=== PATIENT | female | born 1980 | race African-American/Black ===

== ENCOUNTER 2016-04-29 17:37 | Emergency (ER) | payer OTHER ==
[2016-04-29] MEDS ORDERED: ASPIRIN 81 MG TABLET, CHEWABLE PO ONE (17:52)
[2016-04-29 17:53] VITALS: BP 166/86
--- NOTE | 2016-04-29 17:53 | ER Document Report ---
ED Medical Screen (RME) - General Stated Complaint: CHEST PAIN Mode of Arrival: Wheelchair Information source: Patient Notes: Patient reports having cold sweats today. Patient reports chest pain and lightheadedness that started suddenly just before 5 PM today. No nausea or vomiting. Patient reports sitting up straight standing aggravates her pain symptoms. Patient does report a family history of early heart disease. hx: Hypertension, diabetes I have greeted and performed a rapid initial assessment of this patient. A comprehensive ED assessment and evaluation of the patient, analysis of test results and completion of the medical decision making process will be conducted by additional ED providers. TRAVEL OUTSIDE OF THE [place] IN LAST 30 DAYS: No - Related Data Allergies/Adverse Reactions: codeine [Codeine] Allergy (Verified 04/29/16 17:50) Past Medical History Endocrine Medical History: Reports: Hx Diabetes Mellitus Type 1, Hx Diabetes Mellitus Type 2 Renal/ Medical History: Reports: Hx Ovarian Cysts GI Medical History: Reports: Hx Endoscopy Past Surgical History: Reports: Hx Section - x2, Hx Gynecologic Surgery - fallopian tube removed left, uterine ablation - Immunizations Immunizations up to date: Yes Hx Diphtheria, Pertussis, Tetanus Vaccination: Yes - unknown Physical Exam - Cardiovascular Rhythm: Tachycardia - Apical 108 Heart sounds: S1 appreciated, S2 appreciated Murmur: No
[2016-04-29 18:36] LABS: ABSOLUTE EOSINOPHILS # (AUTO) 0.3 10^3/uL (0.0-0.6); ABSOLUTE LYMPHOCYTES (AUTO) 2.9 10^3/uL (0.5-4.7); ABSOLUTE MONOCYTES (AUTO) 0.7 10^3/uL (0.1-1.4); ABSOLUTE NEUT (AUTO) 5.6 10^3/uL (1.7-8.2); BASOPHILS % (AUTO) 0.3 % (0-2); EOSINOPHILS % (AUTO) 2.8 % (0-6); HEMATOCRIT 32.2 % (36.0-47.0); HEMOGLOBIN 10.7 g/dL (12.0-15.5); HGB HCT DIFFERENCE -0.1; LYMPHOCYTES % (AUTO) 30.7 % (13-45); MEAN CORPUSCULAR HEMOGLOBIN 27.9 pg (27.0-33.4); MEAN CORPUSCULAR HGB CONC 33.1 g/dL (32.0-36.0); MEAN CORPUSCULAR VOLUME 84 fl (80-97); MONOCYTES % (AUTO) 6.9 % (3-13); RED BLOOD COUNT 3.83 10^6/uL (3.72-5.28); RED CELL DISTRIBUTION WIDTH 12.8 % (11.5-14.0); SEGMENTED NEUTROPHILS % (AUTO) 59.3 % (42-78); WHITE BLOOD COUNT 9.5 10^3/uL (4.0-10.5)
[2016-04-29 18:44] LABS: APPEARANCE,URINE SLIGHTLY-CLOUDY; BILIRUBIN,URINE NEGATIVE (NEGATIVE); GLUCOSE, URINE 50 mg/dL (NEGATIVE); KETONES,URINE NEGATIVE (NEGATIVE); LEUKOCYTE ESTERASE,URINE NEGATIVE (NEGATIVE); NITRITE,URINE NEGATIVE (NEGATIVE); PROTEIN,URINE 100 mg/dL (NEGATIVE); URINE SPECIFIC GRAVITY 1.014; UROBILINOGEN,URINE NEGATIVE mg/dL (<2.0)
[2016-04-29 18:58] LABS: ALANINE AMINOTRANSFERASE 35 U/L (9-52); ALKALINE PHOSPHATASE 73 U/L (38-126); ANION GAP 15 (5-19); ASPARTATE AMINO TRANSFERASE 23 U/L (14-36); BILIRUBIN,DIRECT 0.3 mg/dL (0.0-0.4); BILIRUBIN,TOTAL 0.5 mg/dL (0.2-1.3); BLOOD UREA NITROGEN 29 mg/dL (7-20); CALCIUM 10.1 mg/dL (8.4-10.2); CARBON DIOXIDE 23 mmol/L (22-30); CHLORIDE 103 mmol/L (98-107); CREATINE KINASE 174 U/L (30-135); CREATININE RESULT 0.82 mg/dL (0.52-1.25); GLUCOSE 149 mg/dL (75-110); LIPASE 166.5 U/L (23-300); MAGNESIUM 1.9 mg/dL (1.6-2.3); POTASSIUM 4.4 mmol/L (3.6-5.0); SODIUM 140.5 mmol/L (137-145); TOTAL PROTEIN 7.6 g/dL (6.3-8.2)
[2016-04-29 18:59] LABS: URINE BARBITURATES SCREEN NEGATIVE; URINE METHADONE SCREEN NEGATIVE; URINE OPIATES LOW NEGATIVE; URINE PHENCYCLIDINE SCREEN NEGATIVE
[2016-04-29 19:10] LABS: CREATINE KINASE MB 0.88 ng/mL (<4.55)
--- NOTE | 2016-04-29 19:11 | EKG REPORT ---
SEVERITY:- BORDERLINE ECG - SINUS TACHYCARDIA BORDERLINE T ABNORMALITIES, INFERIOR LEADS : Confirmed by: Reyes Douglas MD 29-Apr-2016 19:10:44
[2016-04-29 19:13] LABS: TROPONIN I < 0.012 ng/mL
== END 2016-04-29 18:30 | disposition left against medical advice (07) ==
LOC: ER 17:37
DX: R07.9 Chest pain, unspecified (principal); R61 Generalized hyperhidrosis; R42 Dizziness and giddiness; I10 Essential (primary) hypertension; E11.9 Type 2 diabetes mellitus without complications; Z82.49 Family history of ischemic heart disease and other diseases of the circulatory system; Z53.20 Procedure and treatment not carried out because of patient's decision for unspecified reasons
CPT/HCPCS: 36415; 71020; 80053; 80307; 81001; 82550; 82553; 83690; 83735; 84443; 84484; 85025; 93005; 93010; 99281

== ENCOUNTER 2016-07-21 16:02 | Emergency (ER) | payer OTHER ==
[2016-07-21 16:14] VITALS: BP 142/79
== END 2016-07-21 17:40 | disposition left against medical advice (07) ==
LOC: ER 16:02
DX: Z53.9 Procedure and treatment not carried out, unspecified reason (principal); R42 Dizziness and giddiness
CPT/HCPCS: 82962

== ENCOUNTER 2017-09-25 11:32 | Emergency (ER) | payer OTHER ==
[2017-09-25] MEDS ORDERED: RINGERS SOLUTION,LACTATED 1,000 ML IV ONE (11:52)
--- NOTE | 2017-09-25 11:52 | ER Document Report ---
ED Medical Screen (RME) - General Chief Complaint: High Blood Sugar Stated Complaint: BLOOD SUGAR ISSUES Time Seen by Provider: 09/25/17 11:51 Mode of Arrival: Ambulatory Information source: Patient Notes: This is a 37-year-old female with type 1 diabetes and hypertension who is been without medicines since April is coming in with nausea, generalized weakness and concerns that she may be in DKA. She has had DKA in the past. TRAVEL OUTSIDE OF THE [place] IN LAST 30 DAYS: No - Related Data Allergies/Adverse Reactions: codeine [Codeine] Allergy (Verified 09/25/17 11:37) Past Medical History - Social History Frequency of alcohol use: None Drug Abuse: None - Past Medical History Cardiac Medical History: Reports: Hx Hypertension Endocrine Medical History: Reports: Hx Diabetes Mellitus Type 1, Hx Diabetes Mellitus Type 2 Renal/ Medical History: Reports: Hx Ovarian Cysts. Denies: Hx Peritoneal Dialysis GI Medical History: Reports: Hx Endoscopy Past Surgical History: Reports: Hx Abdominal Surgery - abdominal lap for mass, Hx Section - x2, Hx Gynecologic Surgery - fallopian tube removed left, uterine ablation, Hx Hysterectomy - Immunizations Immunizations up to date: Yes Hx Diphtheria, Pertussis, Tetanus Vaccination: Yes - unknown Physical Exam - Vital signs Vitals: Temp Pulse Resp BP Pulse Ox 98.2 F 69 18 184/107 H 97 09/25/17 11:38 09/25/17 11:38 09/25/17 11:38 09/25/17 11:38 09/25/17 11:38 Course - Vital Signs Vital signs: Temp Pulse Resp BP Pulse Ox 98.2 F 69 18 184/107 H 97 09/25/17 11:38 09/25/17 11:38 09/25/17 11:38 09/25/17 11:38 09/25/17 11:38
[2017-09-25 12:15] LABS: VENOUS BLOOD BASE EXCESS 1.7 mmol/L; VENOUS BLOOD HCO3 28.5 mmol/L (20-32); VENOUS BLOOD PCO2 54.1 mmHg (35-63); VENOUS BLOOD PH 7.34 (7.30-7.42)
[2017-09-25 12:16] LABS: ABSOLUTE EOSINOPHILS # (AUTO) 0.1 10^3/uL (0.0-0.6); ABSOLUTE LYMPHOCYTES (AUTO) 2.2 10^3/uL (0.5-4.7); ABSOLUTE MONOCYTES (AUTO) 0.5 10^3/uL (0.1-1.4); ABSOLUTE NEUT (AUTO) 4.9 10^3/uL (1.7-8.2); BASOPHILS % (AUTO) 0.6 % (0-2); EOSINOPHILS % (AUTO) 1.5 % (0-6); HEMATOCRIT 38.1 % (36.0-47.0); HEMOGLOBIN 12.6 g/dL (12.0-15.5); MEAN CORPUSCULAR HEMOGLOBIN 29.7 pg (27.0-33.4); MEAN CORPUSCULAR HGB CONC 33.2 g/dL (32.0-36.0); MEAN CORPUSCULAR VOLUME 90 fl (80-97); MONOCYTES % (AUTO) 6.7 % (3-13); PLATELET COUNT 245 10^3/uL (150-450); RED BLOOD COUNT 4.25 10^6/uL (3.72-5.28); RED CELL DISTRIBUTION WIDTH 12.9 % (11.5-14.0); SEGMENTED NEUTROPHILS % (AUTO) 63.2 % (42-78); TOTAL CELLS COUNTED % (AUTO) 100 %; WHITE BLOOD COUNT 7.7 10^3/uL (4.0-10.5)
[2017-09-25 12:34] LABS: ALANINE AMINOTRANSFERASE 27 U/L (9-52); ALBUMIN 3.4 g/dL (3.5-5.0); ALKALINE PHOSPHATASE 109 U/L (38-126); ANION GAP 14 (5-19); ASPARTATE AMINO TRANSFERASE 17 U/L (14-36); BILIRUBIN,DIRECT 0.3 mg/dL (0.0-0.4); BILIRUBIN,TOTAL 0.5 mg/dL (0.2-1.3); BLOOD UREA NITROGEN 17 mg/dL (7-20); CALCIUM 9.4 mg/dL (8.4-10.2); CARBON DIOXIDE 25 mmol/L (22-30); CHLORIDE 92 mmol/L (98-107); POTASSIUM 4.8 mmol/L (3.6-5.0); SODIUM 130.7 mmol/L (137-145); TOTAL PROTEIN 6.8 g/dL (6.3-8.2)
[2017-09-25 12:43] LABS: GLUCOSE 594 mg/dL (75-110)
[2017-09-25] MEDS ORDERED: INSULIN REG, HUMAN 100 UNIT/ML 3 ML VIAL (PYX) SUBCUT ONE (12:49)
[2017-09-25 13:24] LABS: APPEARANCE,URINE CLEAR; BILIRUBIN,URINE NEGATIVE (NEGATIVE); COLOR,URINE COLORLESS; GLUCOSE, URINE >=500 mg/dL (NEGATIVE); KETONES,URINE 20 mg/dL (NEGATIVE); LEUKOCYTE ESTERASE,URINE NEGATIVE (NEGATIVE); NITRITE,URINE NEGATIVE (NEGATIVE); PROTEIN,URINE 100 mg/dL (NEGATIVE); URINE SPECIFIC GRAVITY 1.025; UROBILINOGEN,URINE NEGATIVE mg/dL (<2.0)
[2017-09-25] MEDS ORDERED: PROCHLORPERAZINE EDISYLATE INJ 10 MG/2 ML VIAL IV ONE (14:03)
[2017-09-25] MEDS ORDERED: ONDANSETRON HCL INJ/PF 4 MG/2 ML SDV IV ONE (14:03)
[2017-09-25] MEDS ORDERED: LIDOCAINE 5% (700 MG) TRANSDERMAL ADH..PATCH TP ONE (14:03)
--- NOTE | 2017-09-25 14:09 | ER Document Report ---
ED General - General Chief Complaint: High Blood Sugar Stated Complaint: BLOOD SUGAR ISSUES Time Seen by Provider: 09/25/17 11:51 Mode of Arrival: Ambulatory TRAVEL OUTSIDE OF THE [place] IN LAST 30 DAYS: No - HPI Patient complains to provider of: Hyperglycemia Notes: Patient coming in for hyperglycemia. Concerned she is in DKA. Patient states she is having some abdominal pain nausea and feeling that she is dehydrated with increased urination. Patient states she has not had any of her medications for her diabetes since April. Patient states she stopped taking it because she did not like the way to be filled. Patient otherwise is resting soundly upon my evaluation. Denies any recent travel denies any recent antibiotics. Patient is also concerned about lump has been on her right thigh just above the knee ongoing now for greater than 1-2 months. Patient states sometimes this loss becomes painful there is no child has been performed but no clear etiology seen. - Related Data Allergies/Adverse Reactions: codeine [Codeine] Allergy (Verified 09/25/17 11:37) Past Medical History - General Information source: Patient - Social History Smoking Status: Never Smoker Frequency of alcohol use: None Drug Abuse: None Family History: Other - Grandmother and mother with cardiac issues at a young age. Patient has suicidal ideation: No Patient has homicidal ideation: No - Past Medical History Cardiac Medical History: Reports: Hx Hypertension Endocrine Medical History: Reports: Hx Diabetes Mellitus Type 1, Hx Diabetes Mellitus Type 2 Renal/ Medical History: Reports: Hx Ovarian Cysts. Denies: Hx Peritoneal Dialysis GI Medical History: Reports: Hx Endoscopy Past Surgical History: Reports: Hx Abdominal Surgery - abdominal lap for mass, Hx Section - x2, Hx Gynecologic Surgery - fallopian tube removed left, uterine ablation, Hx Hysterectomy - Immunizations Immunizations up to date: Yes Hx Diphtheria, Pertussis, Tetanus Vaccination: Yes - unknown Review of Systems - Review of Systems Constitutional: See HPI EENT: No symptoms reported Cardiovascular: No symptoms reported Respiratory: No symptoms reported Gastrointestinal: No symptoms reported Genitourinary: No symptoms reported Female Genitourinary: No symptoms reported Musculoskeletal: Other - Soft tissue abnormality Skin: No symptoms reported Hematologic/Lymphatic: No symptoms reported Neurological/Psychological: No symptoms reported -: Yes All other systems reviewed and negative Physical Exam - Vital signs Vitals: Temp Pulse Resp BP Pulse Ox 98.2 F 69 18 184/107 H 97 09/25/17 11:38 09/25/17 11:38 09/25/17 11:38 09/25/17 11:38 09/25/17 11:38 Interpretation: Normal - General General appearance: Appears well, Alert - HEENT Head: Normocephalic, Atraumatic Eyes: Normal Pupils: PERRL - Respiratory Respiratory status: No respiratory distress Chest status: Nontender Breath sounds: Normal Chest palpation: Normal - Cardiovascular Rhythm: Regular Heart sounds: Normal auscultation Murmur: No - Abdominal Inspection: Normal Distension: No distension Bowel sounds: Normal Tenderness: Nontender Organomegaly: No organomegaly - Back Back: Normal, Nontender - Extremities General upper extremity: Normal inspection, Nontender, Normal color, Normal ROM , Normal temperature General lower extremity: Nontender, Normal color, Normal ROM, Normal temperature , Normal weight bearing. No: Normal inspection - Patient was soft tissue abnormality the distal femur on the dorsum of the thigh ultrasound does not show any signs of lipoma abscess formation. Unclear etiology possibly underlying muscle spasms no critical pathology seen at this time. Left lower extremity unaffected, Janki's sign - Neurological Neuro grossly intact: Yes Cognition: Normal Orientation: AAOx4 Mari Coma Scale Eye Opening: Spontaneous Normanna Coma Scale Verbal: Oriented Normanna Coma Scale Motor: Obeys Commands Mari Coma Scale Total: 15 Speech: Normal Motor strength normal: LUE, RUE, LLE, RLE Sensory: Normal - Psychological Associated symptoms: Normal affect, Normal mood - Skin Skin Temperature: Warm Skin Moisture: Dry Skin Color: Normal Course - Re-evaluation Re-evalutation: 09/25/17 14:55 Educated patient that she will need insulin for her diabetes. Will prescribe patient her insulin regimen that she was on prior to her ER visit. Did recommend patient follow-up with her primary care physician no signs of DKA HHS. Patient was also given lidocaine patch for soft tissue abnormality recommend patient follow-up for her PCP for further definitive testing - Vital Signs Vital signs: Temp Pulse Resp BP Pulse Ox 98.2 F 69 15 175/94 H 98 09/25/17 11:38 09/25/17 11:38 09/25/17 12:01 09/25/17 12:01 09/25/17 12:01 - Laboratory Result Diagrams: 09/25/17 12:01 09/25/17 12:01 Laboratory results interpreted by me: 09/25/17 09/25/17 09/25/17 12:01 12:01 13:10 Sodium 130.7 L Chloride 92 L Glucose 594 H* Hemoglobin A1c % > 14.0 H Albumin 3.4 L Urine Protein 100 H Urine Glucose (UA) >=500 H Urine Ketones 20 H Discharge - Discharge Clinical Impression: Hyperglycemia, Soft tissue anomaly right thigh Condition: Good Disposition: HOME, SELF-CARE Instructions: Hyperglycemia ([facility]), Diabetes ([facility]) Additional Instructions: EKG laboratory studies did not show any significant findings. Your blood sugar is significantly elevated with an elevated A1c. We have recommended she continue your diabetic medications until you follow-up with your new provider. I will give the prescriptions for your previously prescribed insulins. Return to the ER for any other issues. Also prescribed Zofran and Compazine and she can take for any nausea or headaches. Also recommend following up with your primary care physician for the soft tissue finding on your right thigh. Prescriptions: Insulin Detemir [Levemir Insulin 100 units/mL] 42 unit SUBCUT QHS #10 ml Insulin Aspart [Novolog Insulin 100 Unit/1 ml 10 ml] 0 unit SUBCUT .SLD SCALE # 10 ml Ondansetron HCl [Zofran 4 mg Tablet] 1 - 2 tab PO Q6 #30 tablet Prochlorperazine Maleate [Compazine] 5 mg PO Q6 #30 tablet Forms: Return to Work
[2017-09-25 14:15] VITALS: BP 173/119
--- NOTE | 2017-09-25 16:18 | EKG REPORT ---
SEVERITY:- BORDERLINE ECG - SINUS RHYTHM PROBABLE LEFT ATRIAL ABNORMALITY BORDERLINE T WAVE ABNORMALITIES : Confirmed by: Reyes Douglas MD 25-Sep-2017 16:17:59
== END 2017-09-25 14:26 | disposition home or self-care (01) ==
LOC: ER 11:32
DX: E11.65 Type 2 diabetes mellitus with hyperglycemia (principal); R22.41 Localized swelling, mass and lump, right lower limb; R10.9 Unspecified abdominal pain; R11.0 Nausea; I10 Essential (primary) hypertension; Z88.6 Allergy status to analgesic agent; Z90.710 Acquired absence of both cervix and uterus
CPT/HCPCS: 93005; 99284; 96361; 96374; 96375; 36415; 82962; 83690; 83735; 85025; 81025; 80053; 81001; 83036; 82803; 93010; J1815; J0780; J2405; J7120

== ENCOUNTER 2018-02-26 15:04 | Emergency (ER) | payer OTHER, MEDICAID ==
[2018-02-26] MEDS ORDERED: MORPHINE SULFATE 10 MG/ML INJ IV ONE ×2 (15:21→17:55)
--- NOTE | 2018-02-26 15:23 | ER Document Report ---
ED Medical Screen (RME) - General Chief Complaint: Lower Abdominal Pain Stated Complaint: ABDOMINAL PAIN Time Seen by Provider: 02/26/18 15:20 Mode of Arrival: Wheelchair Information source: Patient, Relative TRAVEL OUTSIDE OF THE [place] IN LAST 30 DAYS: No - HPI Patient complains to provider of: abd pain Onset: Just prior to arrival - pt. with onset of RLQ pain just [employer]. She is s/p total hysterectomy - Related Data Allergies/Adverse Reactions: codeine [Codeine] Allergy (Verified 09/25/17 11:37) Past Medical History - Social History Chew tobacco use (# tins/day): No Frequency of alcohol use: None Drug Abuse: None - Past Medical History Cardiac Medical History: Reports: Hx Hypertension Endocrine Medical History: Reports: Hx Diabetes Mellitus Type 1, Hx Diabetes Mellitus Type 2 Renal/ Medical History: Reports: Hx Ovarian Cysts. Denies: Hx Peritoneal Dialysis GI Medical History: Reports: Hx Endoscopy Past Surgical History: Reports: Hx Abdominal Surgery - abdominal lap for mass, Hx Section - x2, Hx Gynecologic Surgery - fallopian tube removed left, uterine ablation, Hx Hysterectomy - Immunizations Immunizations up to date: Yes Hx Diphtheria, Pertussis, Tetanus Vaccination: Yes - unknown Physical Exam - Vital signs Vitals: Temp Pulse Resp BP Pulse Ox 98.1 F 103 H 14 182/94 H 97 02/26/18 15:10 02/26/18 15:10 02/26/18 15:10 02/26/18 15:10 02/26/18 15:10 Course - Vital Signs Vital signs: Temp Pulse Resp BP Pulse Ox 98.1 F 103 H 14 182/94 H 97 02/26/18 15:10 02/26/18 15:10 02/26/18 15:10 02/26/18 15:10 02/26/18 15:10
[2018-02-26 16:00] LABS: ABSOLUTE EOSINOPHILS # (AUTO) 0.1 10^3/uL (0.0-0.6); ABSOLUTE LYMPHOCYTES (AUTO) 2.5 10^3/uL (0.5-4.7); ABSOLUTE MONOCYTES (AUTO) 0.4 10^3/uL (0.1-1.4); BASOPHILS % (AUTO) 0.2 % (0-2); EOSINOPHILS % (AUTO) 1.8 % (0-6); HEMOGLOBIN 10.8 g/dL (12.0-15.5); LYMPHOCYTES % (AUTO) 35.6 % (13-45); MEAN CORPUSCULAR HEMOGLOBIN 28.1 pg (27.0-33.4); MEAN CORPUSCULAR HGB CONC 32.6 g/dL (32.0-36.0); MEAN CORPUSCULAR VOLUME 86 fl (80-97); MONOCYTES % (AUTO) 6.2 % (3-13); PLATELET COUNT 309 10^3/uL (150-450); RED BLOOD COUNT 3.83 10^6/uL (3.72-5.28); RED CELL DISTRIBUTION WIDTH 12.8 % (11.5-14.0); SEGMENTED NEUTROPHILS % (AUTO) 56.2 % (42-78); TOTAL CELLS COUNTED % (AUTO) 100 %; WHITE BLOOD COUNT 7.1 10^3/uL (4.0-10.5)
[2018-02-26 16:07] LABS: APPEARANCE,URINE CLEAR; BILIRUBIN,URINE NEGATIVE (NEGATIVE); COLOR,URINE STRAW; GLUCOSE, URINE >=500 mg/dL (NEGATIVE); KETONES,URINE NEGATIVE (NEGATIVE); LEUKOCYTE ESTERASE,URINE NEGATIVE (NEGATIVE); NITRITE,URINE NEGATIVE (NEGATIVE); PROTEIN,URINE >=500 mg/dL (NEGATIVE); URINE SPECIFIC GRAVITY 1.021; UROBILINOGEN,URINE NEGATIVE mg/dL (<2.0)
[2018-02-26 16:18] LABS: ALANINE AMINOTRANSFERASE 20 U/L (9-52); ALBUMIN 3.5 g/dL (3.5-5.0); ALKALINE PHOSPHATASE 99 U/L (38-126); ANION GAP 7 (5-19); ASPARTATE AMINO TRANSFERASE 20 U/L (14-36); BILIRUBIN,DIRECT 0.1 mg/dL (0.0-0.4); BILIRUBIN,TOTAL 0.3 mg/dL (0.2-1.3); BLOOD UREA NITROGEN 22 mg/dL (7-20); CARBON DIOXIDE 26 mmol/L (22-30); CHLORIDE 100 mmol/L (98-107); POTASSIUM 4.2 mmol/L (3.6-5.0); SODIUM 132.7 mmol/L (137-145); TOTAL PROTEIN 6.6 g/dL (6.3-8.2)
[2018-02-26 16:27] LABS: GLUCOSE 470 mg/dL (75-110)
[2018-02-26] MEDS ORDERED: NORMAL SALINE 1000 ML 1,000 ML IV ONE (16:35)
[2018-02-26] MEDS ORDERED: INSULIN REG, HUMAN 100 UNIT/ML 3 ML VIAL (PYX) SUBCUT ONE (17:52)
--- NOTE | 2018-02-26 18:05 | RADIOLOGY REPORT (SQ) ---
EXAM DESCRIPTION: CT ABD/PELVIS WITH IV ONLY COMPLETED DATE/TIME: 02/26/2018 5:44 pm REASON FOR STUDY: RLQ pain COMPARISON: 10/12/2015 TECHNIQUE: CT scan of the abdomen and pelvis performed using helical scanning technique with dynamic intravenous contrast injection. No oral contrast. Images reviewed with lung, soft tissue, and bone w indows. Reconstructed coronal and sagittal MPR images reviewed. Delayed images for evaluation of the urinary system also acquired. All images stored on PACS. All CT scanners at this facility use dose modulation, iterative reconstruction, and/or weight based d osing when appropriate to reduce radiation dose to as low as reasonably achievable (ALARA). [facility]: Dose Right [facility]: CareDose [facility]: Dose Right [facility]: Teradose 4D [facility]: Sarsys CONTRAST TYPE AND DOSE: contrast/concentration: Isovue 350.00 mg/ml; Total Contrast Delivered: 99.0 ml; Total Saline Delivered: 57.0 ml RENAL FUNCTION: GFR > 60. RADIATION DOSE: CT Rad equipment meets quality standard of care and radiation dose reduction techniq ues were employed. CTDIvol: 13.0 - 17.7 mGy. DLP: 1624 mGy-cm.. LIMITATIONS: None. FINDINGS: LOWER CHEST: No significant findings. LIVER: Normal size. No enhancing masses. No dilated ducts. SPLEEN: Normal size. No focal lesions. PANCREAS: No masses identified. No significant calcifications. No adjacent inflammation or peripancre atic fluid collections. Pancreatic duct not dilated. GALLBLADDER: No calcified stones. No inflammatory changes to suggest cholecystitis. ADRENAL GLANDS: No significant masses. RIGHT KIDNEY AND URETER: No cysts identified. No solid masses identified. No calcified stones. No hyd ronephrosis or hydroureter. LEFT KIDNEY AND URETER: No cysts identified. No solid masses identified. No calcified stones. No hydr onephrosis or hydroureter. AORTA AND VESSELS: No aneurysm. No dissection. Renal arteries, SMA, celiac without significant stenos is. RETROPERITONEUM: No bulky retroperitoneal adenopathy. BOWEL AND PERITONEAL CAVITY: No obstruction. APPENDIX: Not visualized. PELVIS: Right pelvic free fluid. The right adnexa and bladder bladder as well as the base of the cec um and appendix region are all in contact in the right lower quadrant-pelvis. Uterus is surgically a bsent. ABDOMINAL WALL: No masses. No hernias. BONES: No acute findings. OTHER: No other significant finding. IMPRESSION: Appendix cannot be identified. Right pelvic free fluid. The right adnexa and bladder, as well as the base of the cecum and the appendix region are all in contact in the right lower quadra nt-pelvis obscuring tissue planes. Consider oral-rectal contrast and pelvic ultrasound to further ev aluate. TECHNICAL DOCUMENTATION: JOB ID: [id number] [place]-72 Quality ID # [id number]: Final reports with documentation of one or more dose reduction techniques (e.g., Au tomated exposure control, adjustment of the mA and/or kV according to patient size, use of iterative reconstruction technique) 2010 [facility]- All Rights Reserved Reading location - IP/workstation name: [email or web address]
--- NOTE | 2018-02-26 19:17 | RADIOLOGY REPORT (SQ) ---
EXAM DESCRIPTION: U/S NON OB PEL TV W/DOPPLER COMPLETED DATE/TIME: 02/26/2018 7:01 pm REASON FOR STUDY: RLQ pain; patient had a partital hysterectomy; COMPARISON: None. TECHNIQUE: Dynamic and static grayscale images acquired of the pelvis via transvaginal approach and recorded on PACS. Additional selected color Doppler and spectral images recorded. LIMITATIONS: None. FINDINGS: UTERUS: Surgically absent. RIGHT OVARY AND DOPPLER: Mildly enlarged size. No worrisome masses. Normal arterial vascular flow wit hout evidence for torsion. LEFT OVARY AND DOPPLER: Normal size. No worrisome masses. Normal arterial vascular flow without evide nce for torsion. FREE FLUID: Small amount of right adnexal free fluid. OTHER: No other significant finding. MEASUREMENTS: RIGHT OVARY: 5.3 x 3.8 x 2.3 cm LEFT OVARY: 3.4 x 2.9 x 2.1 cm IMPRESSION: Small amount of right adnexal free fluid. No evidence for torsion. TECHNICAL DOCUMENTATION: JOB ID: [id number] [place]-72 2010 [employer]- All Rights Reserved Rev-06/24 Reading location - IP/workstation name: [email or web address]
--- NOTE | 2018-02-26 19:32 | ER Document Report ---
Addendum entered and electronically signed by RONALD VITALBELKIS RichardsonARMIN 02/26/18 20:12: Course - Re-evaluation Re-evalutation: 02/26/18 20:11 Patient's blood sugar is 292. I have talked her about taking her insulin. She states she will take her insulin when she gets home. - Vital Signs Vital signs: Temp Pulse Resp BP Pulse Ox 98.6 F 104 H 16 175/94 H 96 02/26/18 18:10 02/26/18 18:10 02/26/18 18:10 02/26/18 18:10 02/26/18 18:10 - Laboratory Result Diagrams: 02/26/18 15:42 02/26/18 15:42 Laboratory results interpreted by me: 02/26/18 02/26/18 02/26/18 15:42 15:42 15:42 Hgb 10.8 L Hct 33.0 L Sodium 132.7 L BUN 22 H Glucose 470 H* POC Glucose Urine Protein >=500 H Urine Glucose (UA) >=500 H 02/26/18 19:43 Hgb Hct Sodium BUN Glucose POC Glucose 292 H Urine Protein Urine Glucose (UA) Original Note: ED General - General Chief Complaint: Lower Abdominal Pain Stated Complaint: ABDOMINAL PAIN Time Seen by Provider: 02/26/18 15:20 Mode of Arrival: Wheelchair Notes: She is a 38-year-old female who presents to the emergency department with a chief complaint of right lower quadrant abdominal pain. She states that her pain started today this morning. She describes the pain as an aching pain. She has had this pain before. Every month she feels that she has pain in the area, but this time it is worse. She has history of a left fallopian tube removal, uterine ablation, and hysterectomy. She was seen at [facility] a couple of years ago and states that they attempted to remove her right ovary laparoscopically, but were not able to remove it. She also has a history of insulin-dependent diabetes. She states that she has not taken her insulin today due to her pain. TRAVEL OUTSIDE OF THE [place] IN LAST 30 DAYS: No - Related Data Allergies/Adverse Reactions: codeine [Codeine] Allergy (Verified 09/25/17 11:37) Past Medical History - General Information source: Patient, Relative - Social History Smoking Status: Never Smoker Chew tobacco use (# tins/day): No Frequency of alcohol use: None Drug Abuse: None Family History: Other - Grandmother and mother with cardiac issues at a young age. Patient has suicidal ideation: No Patient has homicidal ideation: No - Past Medical History Cardiac Medical History: Reports: Hx Hypertension Endocrine Medical History: Reports: Hx Diabetes Mellitus Type 1, Hx Diabetes Mellitus Type 2 Renal/ Medical History: Reports: Hx Ovarian Cysts. Denies: Hx Peritoneal Dialysis GI Medical History: Reports: Hx Endoscopy Past Surgical History: Reports: Hx Abdominal Surgery - abdominal lap for mass, Hx Section - x2, Hx Gynecologic Surgery - fallopian tube removed left, uterine ablation, Hx Hysterectomy - Immunizations Immunizations up to date: Yes Hx Diphtheria, Pertussis, Tetanus Vaccination: Yes - unknown Review of Systems - Review of Systems Notes: REVIEW OF SYSTEMS: CONSTITUTIONAL : Denies recent illness. Denies recent unintentional weight loss. Denies fever, chills, or sweats. EENT: Denies eye, ear, throat, or mouth pain, discharge, or symptoms. Denies nasal or sinus congestion. CARDIOVASCULAR: Denies chest pain. RESPIRATORY: Denies shortness of breath, cough, congestion, difficulty breathing, or wheezing. GASTROINTESTINAL: See HPI GENITOURINARY: Denies difficulty urinating, burning, blood in urine, urgency or frequency. MUSCULOSKELETAL: Denies neck and back pain. Denies joint pain or swelling. SKIN: Denies rash, itchiness, or lesions HEMATOLOGIC : Denies easy bruising or bleeding. LYMPHATIC: Denies swollen, painful, enlarged glands. NEUROLOGICAL: Denies no numbness or tingling denies weakness. Denies headache. Denies altered mental status. Denies alteration in speech. PSYCHIATRIC: Denies stress, anxiety, alteration in sleep patterns, or depression. All other systems reviewed and negative. Physical Exam - Vital signs Vitals: Temp Pulse Resp BP Pulse Ox 98.1 F 103 H 14 182/94 H 97 02/26/18 15:10 02/26/18 15:10 02/26/18 15:10 02/26/18 15:10 02/26/18 15:10 - Notes Notes: PHYSICAL EXAMINATION: GENERAL: Appears well, healthy, well-nourished, no acute distress. HEAD: Normocephalic, atraumatic. EYES: PERRL, conjunctiva normal, all extraocular movements intact, sclera nonicteric ENT: Moist mucous membranes. NECK: Supple, no noticeable swelling, redness, rash. Normal range of motion. LUNGS: Equal breath sounds bilaterally and clear to auscultation. No wheezes rales or rhonchi. CARDIOVASCULAR: S1-S2, regular rate, regular rhythm. Radial pulses 2+, normal. ABDOMEN: Normoactive bowel sounds. Very tender right lower quadrant. Mild guarding noted, no rebound tenderness, and no masses palpated. Scar tissue noted from multiple abdominal surgeries. EXTREMITIES: Normal strength and range of motion, no pitting or edema. No cyano sis. NEUROLOGICAL: Moves all extremities upon command. Strength 5/5 in all extremities. PSYCH: Normal mood, normal affect. SKIN: Warm, dry. No rash, lesions, ulcerations noted. Normal skin turgor. Course - Re-evaluation Re-evalutation: 02/26/18 17:50 Patient's glucose is in the 400s. I will give her 8 units of insulin subc utaneously. She is receiving a bolus of normal saline at this time. We will recheck her sugar before she leaves. Her other labs are unremarkable. The CT of her abdomen does not show acute appendicitis. I do not suspect she has acute appendicitis, because this is the same pain that she has had with her right ovary. She will be sent for a transvaginal ultrasound to assess her ovary to make sure that there is not any acute life-threatening etiology. 02/26/18 19:20 Patient's transvaginal ultrasound shows free fluid in her right adnexal area. I spoke with Dr. Lopez, the MANA[employer] classification inspector and he recommends that she follow-up outpatient. 02/26/18 19:30 I discussed the results of the ultrasound with the patient. She states that she has been taking Motrin and Tylenol at home for her pain, and has had little relief. She will be given a small amount of morphine to help with her pain until she is able to see [facility]. Verbal discharge instructions were given to the patient. They verbalized understanding. They are stable for discharge. - Vital Signs Vital signs: Temp Pulse Resp BP Pulse Ox 98.6 F 104 H 16 175/94 H 96 02/26/18 18:10 02/26/18 18:10 02/26/18 18:10 02/26/18 18:10 02/26/18 18:10 - Laboratory Result Diagrams: 02/26/18 15:42 02/26/18 15:42 Laboratory results interpreted by me: 02/26/18 02/26/18 02/26/18 15:42 15:42 15:42 Hgb 10.8 L Hct 33.0 L Sodium 132.7 L BUN 22 H Glucose 470 H* Urine Protein >=500 H Urine Glucose (UA) >=500 H Discharge - Discharge Clinical Impression: Abdominal pain Qualifiers: Abdominal location: right lower quadrant Qualified Code(s): R10.31 - Right lower quadrant pain Condition: Stable Additional Instructions: You were seen today in the emergency department for abdominal pain. Your pain is due to fluid in your pelvic region. Please follow-up with [facility] on Tuesday in regards to the emergency department visit. You have been prescribed morphine, pain medicine you can take every 12 hours as needed for your pain. Please try to take 1000 mg of Tylenol and 600 mg of ibuprofen every 6 hours before you take your morphine. If you decide to take the morphine, please take 1 capful of MiraLAX a day to help with constipation. If you develop worsening abdominal pain, develop a very firm abdomen, or have any symptoms that are worrisome to you, please return to the emergency department. Prescriptions: Morphine Sulfate [Morphine Ir 15 Mg Tablet] 15 mg PO BID #10 tablet
[2018-02-26 20:23] VITALS: BP 153/87
== END 2018-02-26 20:23 | disposition home or self-care (01) ==
LOC: ER 15:04
DX: R10.31 Right lower quadrant pain (principal); E11.65 Type 2 diabetes mellitus with hyperglycemia; I10 Essential (primary) hypertension; Z88.6 Allergy status to analgesic agent; Z90.710 Acquired absence of both cervix and uterus
CPT/HCPCS: 96376; 99284; 96361; 96374; 36415; 82962; 85025; 80053; 81001; 76830; 93976; 74177; J2270; J1815; J7030

== ENCOUNTER 2018-03-05 17:28 | Emergency (ER) | payer OTHER, MEDICAID ==
--- NOTE | 2018-03-05 17:56 | ER Document Report ---
ED Medical Screen (RME) - General Chief Complaint: Chest Pressure Stated Complaint: CHEST PRESSURE Time Seen by Provider: 03/05/18 17:50 Notes: 38-year-old female patient complaining of lower extremity swelling that started on 02/27/2018. Low back pain that started on , 03/02/2018, and chest pressure that started 1 hour ago. She was seen here on 02/26/2018 with abdominal pain, had a negative workup to include ultrasound, CT scan abdomen pelvis, and blood work. The only abnormality found at that time was elevated blood sugar. Is not on any diuretics. I have greeted and performed a rapid initial assessment of this patient. A comprehensive ED assessment and evaluation of the patient, analysis of test results and completion of the medical decision making process will be conducted by additional ED providers. TRAVEL OUTSIDE OF THE [place] IN LAST 30 DAYS: No - Related Data Allergies/Adverse Reactions: codeine [Codeine] Allergy (Verified 09/25/17 11:37) Past Medical History - Past Medical History Cardiac Medical History: Reports: Hx Hypertension Endocrine Medical History: Reports: Hx Diabetes Mellitus Type 1, Hx Diabetes Mellitus Type 2 Renal/ Medical History: Reports: Hx Ovarian Cysts. Denies: Hx Peritoneal Dialysis GI Medical History: Reports: Hx Endoscopy Past Surgical History: Reports: Hx Abdominal Surgery - abdominal lap for mass, Hx Section - x2, Hx Gynecologic Surgery - fallopian tube removed left, uterine ablation, Hx Hysterectomy - Immunizations Immunizations up to date: Yes Hx Diphtheria, Pertussis, Tetanus Vaccination: Yes - unknown Physical Exam - Vital signs Vitals: Temp Pulse Resp BP Pulse Ox 98.8 F 99 22 H 155/88 H 98 03/05/18 17:46 03/05/18 17:46 03/05/18 17:46 03/05/18 17:46 03/05/18 17:46 Course - Vital Signs Vital signs: Temp Pulse Resp BP Pulse Ox 98.8 F 99 22 H 155/88 H 98 03/05/18 17:46 03/05/18 17:46 03/05/18 17:46 03/05/18 17:46 03/05/18 17:46
[2018-03-05 18:13] LABS: ABSOLUTE BASOPHILS # (AUTO) 0.1 10^3/uL (0.0-0.2); ABSOLUTE EOSINOPHILS # (AUTO) 0.2 10^3/uL (0.0-0.6); ABSOLUTE LYMPHOCYTES (AUTO) 2.5 10^3/uL (0.5-4.7); ABSOLUTE MONOCYTES (AUTO) 0.6 10^3/uL (0.1-1.4); ABSOLUTE NEUT (AUTO) 4.8 10^3/uL (1.7-8.2); BASOPHILS % (AUTO) 1.7 % (0-2); EOSINOPHILS % (AUTO) 1.9 % (0-6); HEMATOCRIT 31.9 % (36.0-47.0); HEMOGLOBIN 10.3 g/dL (12.0-15.5); LYMPHOCYTES % (AUTO) 30.9 % (13-45); MEAN CORPUSCULAR HEMOGLOBIN 28.4 pg (27.0-33.4); MEAN CORPUSCULAR HGB CONC 32.5 g/dL (32.0-36.0); MEAN CORPUSCULAR VOLUME 88 fl (80-97); MONOCYTES % (AUTO) 7.1 % (3-13); PLATELET COUNT 384 10^3/uL (150-450); RED BLOOD COUNT 3.64 10^6/uL (3.72-5.28); RED CELL DISTRIBUTION WIDTH 13.3 % (11.5-14.0); SEGMENTED NEUTROPHILS % (AUTO) 58.4 % (42-78); TOTAL CELLS COUNTED % (AUTO) 100 %; WHITE BLOOD COUNT 8.2 10^3/uL (4.0-10.5)
--- NOTE | 2018-03-05 18:18 | RADIOLOGY REPORT (SQ) ---
EXAM DESCRIPTION: CHEST 2 VIEWS COMPLETED DATE/TIME: 03/05/2018 6:11 pm REASON FOR STUDY: chest pressure COMPARISON: None. EXAM PARAMETERS: NUMBER OF VIEWS: two views TECHNIQUE: Digital Frontal and Lateral radiographic views of the chest acquired. RADIATION DOSE: NA LIMITATIONS: none FINDINGS: LUNGS AND PLEURA: No opacities, masses or pneumothorax. No pleural effusion. MEDIASTINUM AND HILAR STRUCTURES: No masses or contour abnormalities. HEART AND VASCULAR STRUCTURES: Heart normal size. No evidence for failure. BONES: No acute findings. HARDWARE: None in the chest. OTHER: No other significant finding. IMPRESSION: NO ACUTE RADIOGRAPHIC FINDING IN THE CHEST. TECHNICAL DOCUMENTATION: JOB ID: [id number] [email or web address]- All Rights Reserved Reading location - IP/workstation name: [email or web address]
[2018-03-05 18:29] LABS: ALANINE AMINOTRANSFERASE 28 U/L (9-52); ALBUMIN 3.4 g/dL (3.5-5.0); ALKALINE PHOSPHATASE 80 U/L (38-126); ANION GAP 5 (5-19); ASPARTATE AMINO TRANSFERASE 26 U/L (14-36); BILIRUBIN,DIRECT 0.2 mg/dL (0.0-0.4); BILIRUBIN,TOTAL 0.3 mg/dL (0.2-1.3); BLOOD UREA NITROGEN 46 mg/dL (7-20); CALCIUM 9.2 mg/dL (8.4-10.2); CARBON DIOXIDE 25 mmol/L (22-30); CHLORIDE 105 mmol/L (98-107); CREATINE KINASE 213 U/L (30-135); GLUCOSE 212 mg/dL (75-110); POTASSIUM 5.3 mmol/L (3.6-5.0); SODIUM 135.4 mmol/L (137-145); TOTAL PROTEIN 6.3 g/dL (6.3-8.2)
[2018-03-05 18:42] LABS: CREATINE KINASE MB 1.59 ng/mL (<4.55); TROPONIN I 0.015 ng/mL
--- NOTE | 2018-03-05 19:29 | ER Document Report ---
ED General - General Chief Complaint: Chest Pressure Stated Complaint: CHEST PRESSURE Time Seen by Provider: 03/05/18 17:50 Notes: Patient is a 38 year old female that comes to the Emergency Department for chief complaint of leg swelling that started 1 week ago, intermittent lower back pain that she started noticing 3 days ago which feel like "spasms", worse on the right side, and she states that during a of her spasm in her back about one hour prior to arrival she felt like she had some pressure on her chest and she felt slightly short of breath during the spasm. She states she normally urinates "all the time" but has significantly decreased her urination over this past week. When asked she states her blood pressure sugars have been much better with her medications. She states symptoms in her chest resolved when the back spasm resolved. She denies fever or chills, nausea or vomiting, injury to the back, current symptoms of shortness of breath or chest pain. She does report intermittently getting swollen legs especially with prolonged sitting. She states that she had a CAT scan and ultrasound here 1 week ago which were no nspecific and she was referred to [facility] afterwards. Past medical history of insulin-dependent diabetes, hypertension, partial hysterectomy, anemia. She denies smoking, alcohol, recreational drugs, or family history of cardiac disease. TRAVEL OUTSIDE OF THE [place] IN LAST 30 DAYS: No - Related Data Allergies/Adverse Reactions: codeine [Codeine] Allergy (Verified 09/25/17 11:37) Past Medical History - General Information source: Patient - Social History Smoking Status: Never Smoker Chew tobacco use (# tins/day): No Drug Abuse: None Lives with: Family Family History: Reviewed & Not Pertinent, Other - Grandmother and mother with cardiac issues at a young age. Patient has suicidal ideation: No Patient has homicidal ideation: No - Past Medical History Cardiac Medical History: Reports: Hx Hypertension Endocrine Medical History: Reports: Hx Diabetes Mellitus Type 2 Renal/ Medical History: Reports: Hx Ovarian Cysts. Denies: Hx Peritoneal Dialysis GI Medical History: Reports: Hx Endoscopy Past Surgical History: Reports: Hx Abdominal Surgery - abdominal lap for mass, Hx Section - x2, Hx Gynecologic Surgery - fallopian tube removed left, uterine ablation, Hx Hysterectomy - Immunizations Immunizations up to date: Yes Hx Diphtheria, Pertussis, Tetanus Vaccination: Yes - unknown Review of Systems - Review of Systems Constitutional: No symptoms reported EENT: No symptoms reported Cardiovascular: See HPI Respiratory: See HPI Gastrointestinal: No symptoms reported Genitourinary: No symptoms reported Female Genitourinary: No symptoms reported Musculoskeletal: See HPI Skin: No symptoms reported Hematologic/Lymphatic: No symptoms reported Neurological/Psychological: No symptoms reported Physical Exam - Vital signs Vitals: Temp Pulse Resp BP Pulse Ox 98.8 F 99 22 H 155/88 H 98 03/05/18 17:46 03/05/18 17:46 03/05/18 17:46 03/05/18 17:46 03/05/18 17:46 - Notes Notes: GENERAL: Alert, interacts well. No acute distress. HEAD: Normocephalic, atraumatic. EYES: Pupils equal, round, and reactive to light. Extraocular movements intact. ENT: Oral mucosa moist, tongue midline. Oropharynx unremarkable. Airway patent. Nares patent, no nasal septal hematoma, TM's intact. NECK: Full range of motion. Supple. Trachea midline. LUNGS: Clear to auscultation bilaterally, no wheezes, rales, or rhonchi. No respiratory distress. HEART: Regular rate and rhythm. No murmur ABDOMEN: Soft, non-tender. Non-distended. Bowel sounds present in all 4 quadrants. GENITOURINARY: Deferred EXTREMITIES: Moves all 4 extremities spontaneously. 1+ bilateral edema, normal radial and dorsalis pedis pulses bilaterally. No cyanosis. No erythema, discoloration, or tenderness noted. BACK: no cervical, thoracic, lumbar midline tenderness. There is some paraspinal right-sided lumbar tenderness extending down to the gluteal area. No saddle anesthesia, normal distal neurovascular exam. NEUROLOGICAL: Alert and oriented x3. Normal speech. [cranial nerves II through XII grossly intact]. PSYCH: Normal affect, normal mood. SKIN: Warm, dry, normal turgor. No rashes or lesions noted. Course - Re-evaluation Re-evalutation: EKG showing no T wave inversions or ST segment changes in consecutive leads. Sinus rhythm. Normal axis. Unremarkable OR interval and QTc. Chest x-ray unremarkable. CBC unremarkable. Chemistry nonspecific with borderline hyperkalemia, borderline hyponatremia. Glucose in the 200s. Patient states over the past week she has been much better and has had much better blood sugars. She has urinated much less as a result. Her urine is nonspecific. She is not acidotic per her bicarbonate and anion gap. She has muscular skeletal p ain on exam in her lower back with described spasms. She does not appear uncomfortable at all. Vital signs unremarkable. Very atypical reported chest pain. Initial troponin is indeterminate, will cycle. Heart score is 1. She does have some mild lower extremity swelling, bilateral, no rales on exam, history of the same but this is slightly worse. She was given a single dose of Lasix while she was here and she was supplied with Dion stockings. Second troponin is negative. I discussed with patient at bedside. Patient will be discharged at this time, follow-up with primary care, be provided with muscle relaxer for her back, and if she continues to have lower extremity swelling she will follow-up with her primary care and begin treatment based on a repeat chemistry, we will not start her on Lasix at this time. I discussed return precautions in detail. Patient and significant other state satisfaction and agreement with plan. - Vital Signs Vital signs: Temp Pulse Resp BP Pulse Ox 98.0 F 92 14 135/72 H 96 03/05/18 23:55 03/05/18 23:55 03/05/18 23:55 03/05/18 23:55 03/05/18 23:55 - Laboratory Result Diagrams: 03/05/18 18:00 03/05/18 18:00 Laboratory results interpreted by me: 03/05/18 03/05/18 03/05/18 18:00 18:00 18:00 RBC 3.64 L Hgb 10.3 L Hct 31.9 L Sodium 135.4 L Potassium 5.3 H BUN 46 H Glucose 212 H Hemoglobin A1c % 13.0 H Magnesium 2.6 H Creatine Kinase 213 H Albumin 3.4 L Urine Protein Urine Glucose (UA) 03/05/18 03/05/18 20:22 22:00 RBC Hgb Hct Sodium Potassium BUN Glucose Hemoglobin A1c % Magnesium Creatine Kinase Albumin Urine Protein 100 H 100 H Urine Glucose (UA) 150 H 50 H Discharge - Discharge Clinical Impression: Swelling of both lower extremities, Flank pain Chest pain Qualifiers: Chest pain type: unspecified Qualified Code(s): R07.9 - Chest pain, unspecified Disposition: HOME, SELF-CARE Additional Instructions: Your workup at this time is reassuring. Take the muscle relaxer as prescribed for back spasm needed, apply heat to the area, avoid lifting/twisting waiting for symptoms to resolve. He can take asvo-[id number] anti-inflammatory as well if needed. For chest pain follow-up, call your primary care provider and follow-up closely in the office. For the lower extremity swelling I do recommend that you wear the dion hose at night, elevate when possible. This should resolve with time. If it does not resolve follow-up with primary care (you may need additional management such as additional diuretics, etc). Return for any concerning symptoms including severe lower extremity swelling, developing redness, fever, shortness of breath, severe pain in your chest, vom iting, or any other concerning symptoms. Prescriptions: Cyclobenzaprine HCl [Flexeril 5 mg Tablet] 1 - 2 tab PO TID PRN #15 tablet PRN Reason:
[2018-03-05 21:00] LABS: APPEARANCE,URINE SLIGHTLY-CLOUDY; BILIRUBIN,URINE NEGATIVE (NEGATIVE); COLOR,URINE STRAW; GLUCOSE, URINE 150 mg/dL (NEGATIVE); KETONES,URINE NEGATIVE (NEGATIVE); LEUKOCYTE ESTERASE,URINE NEGATIVE (NEGATIVE); NITRITE,URINE NEGATIVE (NEGATIVE); PROTEIN,URINE 100 mg/dL (NEGATIVE); URINE SPECIFIC GRAVITY 1.014; UROBILINOGEN,URINE NEGATIVE mg/dL (<2.0)
[2018-03-05] MEDS ORDERED: FUROSEMIDE INJ/PF 20 MG/2 ML SDV IV ONE (21:13)
[2018-03-05 22:21] LABS: APPEARANCE,URINE CLEAR; BILIRUBIN,URINE NEGATIVE (NEGATIVE); COLOR,URINE STRAW; GLUCOSE, URINE 50 mg/dL (NEGATIVE); KETONES,URINE NEGATIVE (NEGATIVE); LEUKOCYTE ESTERASE,URINE NEGATIVE (NEGATIVE); NITRITE,URINE NEGATIVE (NEGATIVE); PROTEIN,URINE 100 mg/dL (NEGATIVE); URINE SPECIFIC GRAVITY 1.012; UROBILINOGEN,URINE NEGATIVE mg/dL (<2.0)
[2018-03-06 00:02] VITALS: BP 135/72
--- NOTE | 2018-03-06 07:28 | EKG REPORT ---
SEVERITY:- BORDERLINE ECG - SINUS RHYTHM BORDERLINE T WAVE ABNORMALITIES : Confirmed by: Therese Valera MD 06-Mar-2018 07:27:50
== END 2018-03-06 00:02 | disposition home or self-care (01) ==
LOC: ER 17:28
DX: R07.9 Chest pain, unspecified (principal); M79.89 Other specified soft tissue disorders; R10.9 Unspecified abdominal pain; M54.5 Low back pain; E11.9 Type 2 diabetes mellitus without complications
CPT/HCPCS: 93005; 99285; 96374; 36415; 82553; 82550; 83735; 85025; 80053; 81001; 84484; 83036; 83880; 71046; 93010; J1940

== ENCOUNTER 2018-09-01 07:58 | Emergency (ER) | payer OTHER, MEDICAID ==
[2018-09-01] MEDS ORDERED: KETOROLAC TROMETHAMINE 60 MG/2 ML SDV IM ONE (08:26)
--- NOTE | 2018-09-01 08:28 | ER Document Report ---
HPI - HPI Time Seen by Provider: 09/01/18 08:20 Pain Level: 5 Notes: Patient is a 38-year-old female with a history of insulin-dependent type 1 diabetes who presents complaining of tailbone pain status post injury prior to arrival. Patient states that she slipped in the shower and landed directly on her buttock/tailbone. Patient states that the pain does not radiate. Pain is worsened by pressure in that area. She is still able to eat and drink without difficulty. She is urinating normally. No history of IV drug abuse or spinal abscess. Denies any headache, fever, head injury, LOC, neck pain, changes in vision/speech/mentation/hearing, URI, sore throat, chest pain, palpitations, syncope, cough, shortness of breath, wheeze, dyspnea, abdominal pain, nausea/vomiting/diarrhea, urinary retention, dysuria, hematuria, loss of control of bowel or bladder, numbness/tingling, saddle anesthesia, muscle paralysis/weakness, or rash. - ROS Systems Reviewed and Negative: Yes All other systems reviewed and negative - REPRODUCTIVE Reproductive: DENIES: : Past Medical History - Social History Smoking Status: Never Smoker Family History: Reviewed & Not Pertinent, Other - Grandmother and mother with cardiac issues at a young age. - Past Medical History Cardiac Medical History: Reports: Hx Hypertension Endocrine Medical History: Reports: Hx Diabetes Mellitus Type 1, Hx Diabetes Mellitus Type 2 Renal/ Medical History: Reports: Hx Ovarian Cysts. Denies: Hx Peritoneal Dialysis GI Medical History: Reports: Hx Endoscopy Past Surgical History: Reports: Hx Abdominal Surgery - abdominal lap for mass, Hx Section - x2, Hx Gynecologic Surgery - fallopian tube removed left, uterine ablation, Hx Hysterectomy - Immunizations Immunizations up to date: Yes Hx Diphtheria, Pertussis, Tetanus Vaccination: Yes - unknown Vertical Provider Document - CONSTITUTIONAL Agree With Documented VS: Yes Notes: PHYSICAL EXAMINATION: GENERAL: Well-appearing, well-nourished and in no acute distress. LUNGS: Breath sounds clear to auscultation bilaterally and equal. No wheezes rales or rhonchi. HEART: Regular rate and rhythm without murmurs, rubs, gallops. ABDOMEN: Soft, nontender, nondistended abdomen. No guarding, no rebound. No masses appreciated. Normal bowel sounds present. No CVA tenderness bilaterally. No pulsatile mass Musculoskeletal: LE's b/l: FROM to passive/active. Strength 5+/5. No deficits noted. No bony tenderness of extremities. Back: FROM to passive/active. Strength 5+/5. + tenderness to palp of the coccyx. No other vertebral point tenderness, stepoffs, or deformities. No other bony tenderness, erythema, swelling, or ecchymosis. SLR negative b/l. No SI jt tenderness. No foot drop Extremities: No cyanosis, clubbing, or edema b/l. Peripheral pulses 2+. Capillary refill less than 2 seconds. NEUROLOGICAL: Normal speech, limping gait. Normal sensory, motor exams. Reflexes 2+ b/l. PSYCH: Normal mood, normal affect. SKIN: Warm, Dry, normal turgor, no rashes or lesions noted. - INFECTION CONTROL TRAVEL OUTSIDE OF THE [place] IN LAST 30 DAYS: No Course - Re-evaluation Re-evalutation: 09/01/18 09:13 Patient is an afebrile, well-hydrated, 38-year-old female who presents with tailbone pain, suspect contusion. Vitals are acceptable. PE is otherwise unremarkable for any focal neurological deficits. X-ray was unremarkable for any acute pathology. Patient was given Toradol and Lidoderm patch. She has no significant tachycardia, tachypnea, or hypoxia. She is nontoxic-appearing and is tolerating p.o. without difficulties. There are no signs of infection. No other red flag symptoms noted. No other labs or imaging warranted at this time based on H&P. Low suspicion for any meningitis, fracture, expanding/ruptured AAA, cauda equina syndrome, epidural mass lesion/abscess, herniated disc causing severe spinal stenosis, or other systemic infection at this time. Patient is aware that his condition can change from initial presentation and that he needs monitor symptoms closely for any acute changes. I will send her home with a prescription for lidoderm patches, tramadol, and naproxen. Conservative measures otherwise for symptoms. Recheck with your PCM in 3-5 days. Consider consult with orthopedic/physical therapy. Return to the ED with any worsening/concerning symptoms otherwise as reviewed discharge. Patient is in agreement. - Vital Signs Vital signs: Temp Pulse Resp BP Pulse Ox 98.6 F 106 H 20 147/84 H 98 09/01/18 08:03 09/01/18 08:03 09/01/18 08:03 09/01/18 08:03 09/01/18 08:03 Discharge - Discharge Clinical Impression: Contusion of coccyx Qualifiers: Encounter type: initial encounter Qualified Code(s): S30.0XXA - Contusion of lower back and pelvis, initial encounter Condition: Stable Disposition: HOME, SELF-CARE Instructions: Coccyx Injury ([facility]) Additional Instructions: Rest, Ice Tylenol/ibuprofen as needed Light stretches daily Strength exercises as able Moist heat and massage may help F/u with your PCP in 3-5 days for a recheck Consider consult(s) with Orthopedics/physical therapy for ongoing/worsening symptoms Return to the ED with any worsening symptoms and/or development of fever, headache, chest pain, palpitations, syncope, shortness of breath, trouble breathing, abdominal pain, n/v/d, blood in stool/urine, loss of control of bowel/bladder, urinary retention, muscle weakness/paralysis, saddle anesthesia, numbness/tingling, or other worsening symptoms that are concerning to you. Prescriptions: Lidocaine [Lidoderm 5% (700 mg) Transdermal Patch] 1 patch TP DAILY #10 adh..patch Naproxen 500 mg PO BID #14 tablet Tramadol HCl [Ultram 50 mg Tablet] 50 mg PO TID #15 tab Forms: Elevated Blood Pressure, Return to Work Referrals: SEFERINO BARTLETT PA [Primary Care Provider] - Follow up as needed [facility] [Provider [facility]] - Follow up as needed
[2018-09-01] MEDS ORDERED: LIDOCAINE 5% (700 MG) TRANSDERMAL ADH..PATCH TP ONE (08:36)
--- NOTE | 2018-09-01 09:04 | RADIOLOGY REPORT (SQ) ---
EXAM DESCRIPTION: SACRUM AND COCCYX COMPLETED DATE/TIME: 09/01/2018 8:45 am REASON FOR STUDY: pain s/p injury COMPARISON: None. NUMBER OF VIEWS: Three views. TECHNIQUE: AP, lateral, and tilt views of the sacrum and coccyx. LIMITATIONS: None. FINDINGS: MINERALIZATION: Normal. BONES: Overlying bowel gas obscures osseous detail somewhat on the AP images. No acute fracture or dislocation. SOFT TISSUES: No soft tissue swelling. No foreign body. OTHER: No other significant finding. IMPRESSION: 1. Examination is somewhat limited as above. No acute osseous findings. TECHNICAL DOCUMENTATION: JOB ID: [id number]- All Rights Reserved Reading location - IP/workstation name: [email or web address]
[2018-09-01 09:42] VITALS: BP 143/70
== END 2018-09-01 09:42 | disposition home or self-care (01) ==
LOC: ER 07:58
DX: S30.0XXA Contusion of lower back and pelvis, initial encounter (principal); M53.3 Sacrococcygeal disorders, not elsewhere classified; W18.2XXA Fall in (into) shower or empty bathtub, initial encounter; E10.9 Type 1 diabetes mellitus without complications; I10 Essential (primary) hypertension; Z79.4 Long term (current) use of insulin
CPT/HCPCS: 99283; 96372; 72220; J1885

== ENCOUNTER 2018-12-08 10:35 | Emergency (ER) | payer OTHER, MEDICAID ==
[2018-12-08 10:44] VITALS: BP 157/91
--- NOTE | 2018-12-08 11:03 | ER Document Report ---
ED Medical Screen (RME) - General Chief Complaint: Back Pain Stated Complaint: BILATERAL LEG PAIN/SWELLING Time Seen by Provider: 12/08/18 10:58 Primary Care Provider: SEFERINO BARTLETT PA [Primary Care Provider] - Follow up as needed Mode of Arrival: Wheelchair Information source: Patient Notes: 38-year-old female presents to ED for complaint of pain in the right upper back going down her spine all the way down her right leg. She states is like a severe muscle cramp that will not let go. She states that started this morning. She states she fell in August fracturing her tailbone no other injuries noted. She states she has had muscle spasms before but they have never lasted this long and is never been the whole right side. Patient is alert oriented respirations regular nonlabored speaking in full sentences. Patient states she had a hysterectomy 3 years ago. I have greeted and performed a rapid initial assessment of this patient. A comprehensive ED assessment and evaluation of the patient, analysis of test results and completion of medical decision making process will be conducted by an additional ED providers. TRAVEL OUTSIDE OF THE [place] IN LAST 30 DAYS: No - Related Data Allergies/Adverse Reactions: codeine [Codeine] Allergy (Verified 09/01/18 07:59) Past Medical History - Past Medical History Cardiac Medical History: Reports: Hx Hypertension Endocrine Medical History: Reports: Hx Diabetes Mellitus Type 1, Hx Diabetes Mellitus Type 2 Renal/ Medical History: Reports: Hx Ovarian Cysts. Denies: Hx Peritoneal Dialysis GI Medical History: Reports: Hx Endoscopy Past Surgical History: Reports: Hx Abdominal Surgery - abdominal lap for mass, Hx Section - x2, Hx Gynecologic Surgery - fallopian tube removed left, uterine ablation, Hx Hysterectomy - Immunizations Immunizations up to date: Yes Hx Diphtheria, Pertussis, Tetanus Vaccination: Yes - unknown Physical Exam - Vital signs Vitals: Temp Pulse Resp BP Pulse Ox 98.2 F 99 18 157/91 H 100 12/08/18 10:43 12/08/18 10:43 12/08/18 10:43 12/08/18 10:43 12/08/18 10:43 Course - Vital Signs Vital signs: Temp Pulse Resp BP Pulse Ox 98.2 F 99 18 157/91 H 100 12/08/18 10:43 12/08/18 10:43 12/08/18 10:43 12/08/18 10:43 12/08/18 10:43 Doctor's Discharge - Discharge Referrals: SEFERINO BARTLETT PA [Primary Care Provider] - Follow up as needed
[2018-12-08] MEDS ORDERED: IBUPROFEN 800 MG TABLET PO ONE (11:04)
[2018-12-08 11:35] LABS: APPEARANCE,URINE CLEAR; BILIRUBIN,URINE NEGATIVE (NEGATIVE); COLOR,URINE STRAW; GLUCOSE, URINE 150 mg/dL (NEGATIVE); KETONES,URINE NEGATIVE (NEGATIVE); PROTEIN,URINE >=500 mg/dL (NEGATIVE); URINE SPECIFIC GRAVITY 1.011; UROBILINOGEN,URINE NEGATIVE mg/dL (<2.0)
--- NOTE | 2018-12-08 12:17 | RADIOLOGY REPORT (SQ) ---
EXAM DESCRIPTION: L SPINE WHOLE COMPLETED DATE/TIME: 12/08/2018 11:35 am REASON FOR STUDY: right sided cback pain COMPARISON: None. NUMBER OF VIEWS: Five views including obliques. TECHNIQUE: AP, lateral, oblique, and sacral radiographic images acquired of the lumbar spine. LIMITATIONS: None. FINDINGS: MINERALIZATION: Normal. SEGMENTATION: Normal. No transitional anatomy. ALIGNMENT: Normal. VERTEBRAE: Maintained height. No fracture or worrisome bone lesion. DISCS: Preserved height. No significant osteophytes or end plate irregularity. POSTERIOR ELEMENTS: Pedicles and facets are intact. No pars defect or posterior arch defects. HARDWARE: None in the spine. PARASPINAL SOFT TISSUES: Normal. PELVIS: Intact as visualized. No fractures or worrisome bone lesions. SI joints intact. OTHER: No other significant finding. IMPRESSION: NORMAL 5 VIEW LUMBAR SPINE. TECHNICAL DOCUMENTATION: JOB ID: [id number] [employer]- All Rights Reserved Reading location - IP/workstation name: [email or web address]
== END 2018-12-08 13:01 | disposition left against medical advice (07) ==
LOC: ER 10:35
DX: M54.9 Dorsalgia, unspecified (principal); M79.604 Pain in right leg; I10 Essential (primary) hypertension; E11.9 Type 2 diabetes mellitus without complications; Z87.81 Personal history of (healed) traumatic fracture; Z88.5 Allergy status to narcotic agent; Z53.20 Procedure and treatment not carried out because of patient's decision for unspecified reasons
CPT/HCPCS: 72110; 81001; 99283

== ENCOUNTER 2019-02-14 07:15 | Day surgery (SDC) | payer OTHER, MEDICAID ==
[~2019-02-14 07:15] MED LIST: KETOROLAC TROMETHAMINE 0.45% 4 DROP/0.4 ML DROPERETTE OS PRN; MIDAZOLAM 2 MG/2 ML INJ ONE
[2019-02-14] MEDS: TETRACAINE HCL 0.5% OPH SOLN 4 ML OS PRN ×4 (07:59→08:29)
[2019-02-14] MEDS: TROPICAMIDE 1% OPH SOLN 15 ML OS PRN ×3 (08:00→08:23)
[2019-02-14] MEDS: BESIFLOXACIN HCL 0.6% OPH SUSP 5 ML BOTTLE OS PRN ×4 (08:00→08:52)
[2019-02-14] MEDS: CYCLOPENTOLATE 0.2%/PHENYLEPHRINE 1% OPH SOLN 2 ML OS PRN ×3 (08:00→08:23)
[2019-02-14] MEDS: CHONDR SU A NA/HYALUR INTRAOC KIT (SURGICARE) ONE ×2 (08:40)
[2019-02-14] MEDS: LIDOCAINE 1%/PHENYLEPHRINE 1.5% 1 ML VIAL ONE ×2 (08:40)
[2019-02-14] MEDS: EPINEPHRINE INJ/PF 1 MG/1 ML AMPULE ONE ×2 (08:40)
[2019-02-14] MEDS: DORZOLAMIDE HCL 2%/TIMOLOL MALEAT 0.5% OPH SOLN 10 ML OS PRN ×2 (08:52)
== END 2019-02-14 09:30 | disposition home or self-care (01) ==
LOC: SC 07:15
PROVIDERS: ATTEND Ophthalmology
DX: H25.12 Age-related nuclear cataract, left eye (principal); E78.00 Pure hypercholesterolemia, unspecified; I10 Essential (primary) hypertension; E11.9 Type 2 diabetes mellitus without complications; Z79.899 Other long term (current) drug therapy; Z79.4 Long term (current) use of insulin; Z88.5 Allergy status to narcotic agent
CPT/HCPCS: 82962; 66984; V2632; J2250; J3490 ×2; J0171; J2370; 142

== ENCOUNTER 2019-02-28 07:25 | Day surgery (SDC) | payer OTHER, MEDICAID ==
[~2019-02-28 07:25] MED LIST changes: +FENTANYL CITRATE INJ/PF 100 MCG/2 ML AMPUL ONE; +KETOROLAC TROMETHAMINE 0.45% 4 DROP/0.4 ML DROPERETTE OD PRN; -KETOROLAC TROMETHAMINE 0.45% 4 DROP/0.4 ML DROPERETTE OS PRN; +ONDANSETRON HCL INJ/PF 4 MG/2 ML SDV ONE
[2019-02-28] MEDS: TETRACAINE HCL 0.5% OPH SOLN 4 ML OD PRN ×3 (07:58→08:45)
[2019-02-28] MEDS: BESIFLOXACIN HCL 0.6% OPH SUSP 5 ML BOTTLE OD PRN ×4 (07:58→08:53)
[2019-02-28] MEDS: CYCLOPENTOLATE 0.2%/PHENYLEPHRINE 1% OPH SOLN 2 ML OD PRN ×3 (07:58→08:20)
[2019-02-28] MEDS: TROPICAMIDE 1% OPH SOLN 15 ML OD PRN ×3 (07:58→08:20)
[2019-02-28] MEDS: CHONDR SU A NA/HYALUR INTRAOC KIT (SURGICARE) ONE ×2 (08:39)
[2019-02-28] MEDS: EPINEPHRINE INJ/PF 1 MG/1 ML AMPULE ONE ×2 (08:39)
[2019-02-28] MEDS: LIDOCAINE 1%/PHENYLEPHRINE 1.5% 1 ML VIAL ONE ×2 (08:39)
[2019-02-28] MEDS: DORZOLAMIDE HCL 2%/TIMOLOL MALEAT 0.5% OPH SOLN 10 ML OD PRN ×2 (08:53)
[2019-02-28] MEDS: DIPHENHYDRAMINE HCL 50 MG/ML VIAL ONE ×2 (09:18→09:25)
--- NOTE | 2019-02-28 15:04 | Operative Report ---
Operative Report-[facility] Operative Report: DATE OF SURGERY: February 28, 2019 PREOPERATIVE DIAGNOSIS: NUCLEAR CATARACT, RIGHT EYE. POSTOPERATIVE DIAGNOSIS: NUCLEAR CATARACT, RIGHT EYE. PROCEDURE PERFORMED: PHACOEMULSIFICATION WITH POSTERIOR CHAMBER INTRAOCULAR LENS IMPLANT, RIGHT EYE. SURGEON: Matthew Claire DO MEDICATIONS AND ANESTHESIA: Versed: IV Versed Tetracaine drops: 1 to 2 drops given as needed COMPLICATION: [None] INDICATIONS FOR SURGERY: Medical necessity: Best corrected visual acuity worse than 20/40 secondary to cataracts with impairment of ability to carry out needs or desired activities, blurred vision, visual distortion, reduced contrast sensitivity and/or glare with association functional impairment and supporting documentation/testing, and cataracts causing symptomatic impairment of visual functions not corrected with tolerable changes in glasses or contact lenses interfering with activities of daily life. PROCEDURE: Consent: The risks, benefits and alternatives of this procedures was discussed with the patient. The patient read and signed the consent forms, was identified and was seated in the exam chair. IOL: MX 60 E IOL Diopters: 13.0 Phacoemulsification with posterior chamber intraocular lens implant: The face was prepped with 5% povidone iodine solution, and a few drops of 5% povidone iodine solution was instilled into the inferior fornix. A non-fenestrated drape was placed over the eye and the lids were parted with the speculum. A paracentesis was made with a 15 degree blade, and 1% lidocaine MPF followed by viscoelastic was injected into the anterior chamber. A 2.4 mm metal micro- keratome was used to create a temporal clear corneal incision. A circular anterior capsulorrhexis was created, followed by hydro-dissection and hydro- delineation. The phacoemulsification hand piece was inserted and the nucleus was removed with the Phaco chop technique. The irrigation-aspiration hand piece was used to remove the residual cortex, and vacuum the posterior capsule. The capsular bag was inflated and viscoelastic and the above-mentioned IOL was injected into the eye with care to insert both leaning and trailing haptics in the capsular bag. The irrigation/aspiration hand piece was reinserted to remove residual viscoelastic from the capsular bag and anterior chamber. The corneal incision was hydrated, and anterior chamber was inflated with sterile BSS via the paracentesis site, and found to be watertight. Postop medication: 1 drop of prednisolone into operative by followed by 1 drop of Cosopt into operative eye followed by 1 drop of Besivance intraoperative by other: []
== END 2019-02-28 10:40 | disposition home or self-care (01) ==
LOC: SC 07:25
PROVIDERS: ATTEND Ophthalmology
DX: H25.11 Age-related nuclear cataract, right eye (principal); Z98.42 Cataract extraction status, left eye; Z79.899 Other long term (current) drug therapy; Z79.4 Long term (current) use of insulin; Z88.5 Allergy status to narcotic agent; E11.9 Type 2 diabetes mellitus without complications; I10 Essential (primary) hypertension; E78.00 Pure hypercholesterolemia, unspecified
CPT/HCPCS: 66984; 82962; V2632; J2250; J3490 ×2; J1200; J0171; J3010; J2405; J2370; 142

== ENCOUNTER 2019-03-10 12:27 | Emergency (ER) | payer OTHER, MEDICAID ==
[2019-03-10] MEDS ORDERED: NORMAL SALINE 1000 ML 1,000 ML IV ONE (12:58)
[2019-03-10] MEDS ORDERED: ONDANSETRON HCL INJ/PF 4 MG/2 ML SDV IV ONE (12:58)
--- NOTE | 2019-03-10 13:00 | ER Document Report ---
ED Medical Screen (RME) - General Chief Complaint: Headache Stated Complaint: HEADACHE Time Seen by Provider: 03/10/19 12:45 Primary Care Provider: SEFERINO BARTLETT PA [Primary Care Provider] - Follow up as needed TRAVEL OUTSIDE OF THE [place] IN LAST 30 DAYS: No - HPI Notes: 03/10/19 12:58 39-year-old female to the emergency department with complaints of right-sided headache that began several days ago. She states that she had cataract surgery to her right eye about a week ago. She states that she started to have the headache after she had the surgery. She states she saw her gas and oil servicer in follow-up and they told her that it could be just postop pain from the cataract surgery. She states that she has been taking ibuprofen and Excedrin without any relief. Now she started to develop nausea, photophobia, phonophobia. She is never had a headache like this before she states this is the worst headache ever. There is no family history of cerebral aneurysms. I performed a brief medical screening exam on the patient determined that she will need further evaluation by me inside provider. I placed initial orders have expedited care. - Related Data Allergies/Adverse Reactions: codeine [Codeine] Allergy (Verified 02/22/19 16:01) Anaphylaxis Home Medications: novolog, traceba, simvastatin, hctz Past Medical History - Social History Frequency of alcohol use: None Drug Abuse: None - Past Medical History Cardiac Medical History: Reports: Hx Hypertension Denies: Hx Heart Attack Pulmonary Medical History: Denies: Hx Asthma Neurological Medical History: Denies: Hx Cerebrovascular Accident, Hx Seizures Endocrine Medical History: Reports: Hx Diabetes Mellitus Type 1, Hx Diabetes Mellitus Type 2 Renal/ Medical History: Reports: Hx Ovarian Cysts. Denies: Hx Peritoneal Dialysis GI Medical History: Reports: Hx Endoscopy. Denies: Hx Hepatitis, Hx Hiatal Hernia, Hx Ulcer Infectious Medical History: Denies: Hx Hepatitis Past Surgical History: Reports: Hx Abdominal Surgery - abdominal lap for mass, Hx Section - x2, Hx Gynecologic Surgery - fallopian tube removed left, uterine ablation, Hx Hysterectomy. Denies: Hx Mastectomy, Hx Open Heart Surgery, Hx Pacemaker - Immunizations Immunizations up to date: Yes Hx Diphtheria, Pertussis, Tetanus Vaccination: Yes - unknown Physical Exam - Vital signs Vitals: Temp Pulse Resp BP Pulse Ox 98.5 F 109 H 16 152/100 H 99 02/01/20 12:33 03/10/19 12:33 03/10/19 12:33 03/10/19 12:33 03/10/19 12:33 Course - Vital Signs Vital signs: Temp Pulse Resp BP Pulse Ox 98.5 F 109 H 16 152/100 H 99 03/10/19 12:33 03/10/19 12:33 03/10/19 12:33 03/10/19 12:33 03/10/19 12:33 Doctor's Discharge - Discharge Referrals: SEFERINO BARTLETT PA [Primary Care Provider] - Follow up as needed
--- NOTE | 2019-03-10 13:45 | RADIOLOGY REPORT (SQ) ---
EXAM DESCRIPTION: CT HEAD WITHOUT COMPLETED DATE/TIME: 03/10/2019 1:27 pm REASON FOR STUDY: headache COMPARISON: 06/30/2014. TECHNIQUE: Axial images acquired through the brain without intravenous contrast. Images reviewed wi th bone, brain and subdural windows. Additional sagittal and coronal reconstructions were generated. Images stored on PACS. All CT scanners at this facility use dose modulation, iterative reconstruction, and/or weight based d osing when appropriate to reduce radiation dose to as low as reasonably achievable (ALARA). [facility]: Dose Right [facility]: CareDose [facility]: Dose Right [facility]: Teradose 4D [facility]: Smart Schoo RADIATION DOSE: CT Rad equipment meets quality standard of care and radiation dose reduction techniq ues were employed. CTDIvol: 53.2 mGy. DLP: 937 mGy-cm. mGy. LIMITATIONS: None. FINDINGS: VENTRICLES: Normal size and contour. CEREBRUM: No masses. No hemorrhage. No midline shift. No evidence for acute infarction. Normal gra y/white matter differentiation. No areas of low density in the white matter. CEREBELLUM: No masses. No hemorrhage. No alteration of density. No evidence for acute infarction. EXTRAAXIAL SPACES: No fluid collections. No masses. ORBITS AND GLOBE: No intra- or extraconal masses. Normal contour of globe without masses. CALVARIUM: No fracture. PARANASAL SINUSES: No fluid or mucosal thickening. SOFT TISSUES: No mass or hematoma. OTHER: No other significant finding. IMPRESSION: NORMAL BRAIN CT WITHOUT CONTRAST. EVIDENCE OF ACUTE STROKE: NO. COMMENT: Quality ID # [id number]: Final reports with documentation of one or more dose reduction techniques (e.g., Automated exposure control, adjustment of the mA and/or kV according to patient size, use of iterative reconstruction technique) TECHNICAL DOCUMENTATION: JOB ID: [id number] [employer]- All Rights Reserved Reading location - IP/workstation name: [email or web address]
[2019-03-10] MEDS ORDERED: KETOROLAC TROMETHAMINE INJ/PF 30 MG/1 ML SDV IV ONE (14:13)
[2019-03-10 14:49] LABS: ALKALINE PHOSPHATASE 81 U/L (38-126); ANION GAP 7 (5-19); ASPARTATE AMINO TRANSFERASE 21 U/L (14-36); BILIRUBIN,TOTAL 0.2 mg/dL (0.2-1.3); BLOOD UREA NITROGEN 38 mg/dL (7-20); CARBON DIOXIDE 21 mmol/L (22-30); CHLORIDE 108 mmol/L (98-107); GLUCOSE 154 mg/dL (75-110); POTASSIUM 4.3 mmol/L (3.6-5.0); TOTAL PROTEIN 6.1 g/dL (6.3-8.2)
[2019-03-10 14:52] LABS: ABSOLUTE EOSINOPHILS # (AUTO) 0.2 10^3/uL (0.0-0.6); ABSOLUTE LYMPHOCYTES (AUTO) 2.5 10^3/uL (0.5-4.7); ABSOLUTE MONOCYTES (AUTO) 0.7 10^3/uL (0.1-1.4); BASOPHILS % (AUTO) 0.3 % (0-2); EOSINOPHILS % (AUTO) 3.1 % (0-6); HEMATOCRIT 28.8 % (36.0-47.0); HEMOGLOBIN 9.5 g/dL (12.0-15.5); LYMPHOCYTES % (AUTO) 33.3 % (13-45); MEAN CORPUSCULAR HEMOGLOBIN 28.2 pg (27.0-33.4); MEAN CORPUSCULAR HGB CONC 32.8 g/dL (32.0-36.0); MEAN CORPUSCULAR VOLUME 86 fl (80-97); MONOCYTES % (AUTO) 8.9 % (3-13); PLATELET COUNT 264 10^3/uL (150-450); RED BLOOD COUNT 3.35 10^6/uL (3.72-5.28); RED CELL DISTRIBUTION WIDTH 13.7 % (11.5-14.0); SEGMENTED NEUTROPHILS % (AUTO) 54.4 % (42-78); TOTAL CELLS COUNTED % (AUTO) 100 %; WHITE BLOOD COUNT 7.4 10^3/uL (4.0-10.5)
[2019-03-10] MEDS ORDERED: DIPHENHYDRAMINE HCL 50 MG/ML VIAL IV ONE (16:00)
[2019-03-10] MEDS ORDERED: PROCHLORPERAZINE EDISYLATE INJ 10 MG/2 ML VIAL IV ONE (16:00)
--- NOTE | 2019-03-10 16:02 | ER Document Report ---
ED Headache - General Chief Complaint: Headache Stated Complaint: HEADACHE Time Seen by Provider: 03/10/19 12:45 Primary Care Provider: SEFERINO BARTLETT PA [Primary Care Provider] - Follow up as needed Mode of Arrival: Ambulatory Information source: Patient Notes: 39-year-old female to the emergency department with complaints of right-sided headache that began several days ago. She states that she had cataract surgery to her right eye about a week ago. She states that she started to have the headache after she had the surgery. She states she saw her offset machine operator in follow-up and they told her that it could be just postop pain from the cataract surgery. She states that she has been taking ibuprofen and Excedrin without any relief. Now she started to develop nausea, photophobia, phonophobia. She is never had a headache like this before she states this is the worst headache ever. There is no family history of cerebral aneurysms. TRAVEL OUTSIDE OF THE [place] IN LAST 30 DAYS: No - Related Data Allergies/Adverse Reactions: codeine [Codeine] Allergy (Verified 03/10/19 17:56) Anaphylaxis Home Medications: novolog, traceba, simvastatin, hctz Past Medical History - General Information source: Patient - Social History Smoking Status: Never Smoker Frequency of alcohol use: None Drug Abuse: None Family History: Reviewed & Not Pertinent, Other - Grandmother and mother with cardiac issues at a young age. Patient has suicidal ideation: No Patient has homicidal ideation: No - Past Medical History Cardiac Medical History: Reports: Hx Hypertension Denies: Hx Heart Attack Pulmonary Medical History: Denies: Hx Asthma Neurological Medical History: Denies: Hx Cerebrovascular Accident, Hx Seizures Endocrine Medical History: Reports: Hx Diabetes Mellitus Type 1, Hx Diabetes Mellitus Type 2 Renal/ Medical History: Reports: Hx Ovarian Cysts. Denies: Hx Peritoneal Dialysis GI Medical History: Reports: Hx Endoscopy. Denies: Hx Hepatitis, Hx Hiatal Hernia, Hx Ulcer Infectious Medical History: Denies: Hx Hepatitis Past Surgical History: Reports: Hx Abdominal Surgery - abdominal lap for mass, Hx Section - x2, Hx Gynecologic Surgery - fallopian tube removed left, uterine ablation, Hx Hysterectomy. Denies: Hx Mastectomy, Hx Open Heart Surgery, Hx Pacemaker - Immunizations Immunizations up to date: Yes Hx Diphtheria, Pertussis, Tetanus Vaccination: Yes - unknown Review of Systems - Review of Systems EENT: See HPI Neurological/Psychological: See HPI -: Yes All other systems reviewed and negative Physical Exam - Vital signs Vitals: Temp Pulse Resp BP Pulse Ox 98.5 F 109 H 16 152/100 H 99 03/10/19 12:33 03/10/19 12:33 03/10/19 12:33 03/10/19 12:33 03/10/19 12:33 - Notes Notes: PHYSICAL EXAMINATION: GENERAL: Well-appearing, well-nourished and in no acute distress. HEAD: Atraumatic, normocephalic. EYES: Pupils equal round and reactive to light, extraocular movements intact, conjunctiva are normal. ENT: Nares patent, oropharynx clear without exudates. Moist mucous membranes. NECK: Normal range of motion, supple without lymphadenopathy LUNGS: Breath sounds clear to auscultation bilaterally and equal. No wheezes rales or rhonchi. HEART: Regular rate and rhythm without murmurs ABDOMEN: Soft, nontender, nondistended abdomen. No guarding, no rebound. No masses appreciated. Female : deferred Musculoskeletal: Normal range of motion, no pitting or edema. No cyanosis. NEUROLOGICAL: Face symmetric. Tongue protrudes midline. Extraocular motions intact. Pupils are 2 mm and equally reactive. Normal speech, normal gait. 5 out of 5 strength in both the distal and proximal upper and lower extremities bilaterally. Sensation is grossly intact throughout. Finger to nose testing normal. Pronator drift normal. PSYCH: Normal mood, normal affect. SKIN: Warm, Dry, normal turgor, no rashes or lesions noted. Course - Re-evaluation Re-evalutation: Presentation of a headache that appears to be most consistent with tension versus migrainous type headache. Headache was not maximal in onset, patient has no focal neurologic deficits, no nuchal rigidity, vital signs within normal limits, no papilledema, and patient is overall well in appearance. At the time of my initial evaluation patient has already had a CT scan of her head ordered by triage provider, this was negative for any acute findings. She also received medications and IV fluids which she states has helped her headache but not resolved completely. Patient reports complete resolution of headache after additional medications ordered in the emergency department. Patient will be discharged home in stable condition to follow-up with her primary care provider and offset machine operator. Patient verbalizes understanding and agreement this plan as well as understanding of ED return precautions. - Vital Signs Vital signs: Temp Pulse Resp BP Pulse Ox 99.0 F 111 H 20 149/87 H 98 03/10/19 18:24 03/10/19 18:24 03/10/19 18:24 03/10/19 18:24 03/10/19 18:24 - Laboratory Result Diagrams: 03/10/19 14:11 03/10/19 14:11 Laboratory results interpreted by me: 03/10/19 03/10/19 14:11 14:11 RBC 3.35 L Hgb 9.5 L Hct 28.8 L Sodium 136.0 L Chloride 108 H Carbon Dioxide 21 L BUN 38 H Est GFR ( Amer) 59 L Est GFR (MDRD) Non-Af 49 L Glucose 154 H Total Protein 6.1 L Albumin 3.0 L Discharge - Discharge Clinical Impression: Migraine Qualifiers: Migraine type: unspecified Status migrainosus presence: without status migra inosus Intractability: not intractable Qualified Code(s): G43.909 - Migraine, unspecified, not intractable, without status migrainosus Condition: Stable Disposition: HOME, SELF-CARE Additional Instructions: You were seen today for a migraine headache. Please follow-up with your primary care doctor regarding today's ED visit. Return to emergency department immediately if you develop a headache that gets to its maximum severity within 20 minutes of onset, you pass out, you develop weakness, numbness, changes in your vision, become unable to keep any fluids down for more than 12 hours, or develop a fever greater than 100.4 degrees Fahrenheit. If you develop a similar migraine headache in the future I recommend that you immediately take 600 mg of ibuprofen and 50 mg of Benadryl and go to sleep as quickly as possible. If these medications do not work please take the Fioricet, you can take 1 or 2 tablets up to every 4 hours. This can often prevent your migraine headache from becoming severe. Please follow-up with your primary care provider and your offset machine operator. Prescriptions: Butalb/Acetaminophen/Caffeine [Fioricet (50-325-40 mg) Tablet] 1 tab PO Q4HP PRN #30 tab PRN Reason: Referrals: SEFERINO BARTLETT PA [Primary Care Provider] - Follow up as needed
[2019-03-10 18:25] VITALS: BP 149/87
== END 2019-03-10 18:25 | disposition home or self-care (01) ==
LOC: ER 12:27
DX: G43.909 Migraine, unspecified, not intractable, without status migrainosus (principal); R11.0 Nausea; H53.149 Visual discomfort, unspecified; G89.18 Other acute postprocedural pain; Z98.890 Other specified postprocedural states; Z79.899 Other long term (current) drug therapy; Z88.8 Allergy status to other drugs, medicaments and biological substances; Z79.4 Long term (current) use of insulin; I10 Essential (primary) hypertension; E11.9 Type 2 diabetes mellitus without complications
CPT/HCPCS: 99284; 96361; 96374; 96375; 36415; 85025; 80053; 70450; J1200; J1885; J0780; J7030

== ENCOUNTER 2019-06-25 19:01 | Emergency (ER) | payer OTHER, MEDICAID ==
[2019-06-25] MEDS ORDERED: ASPIRIN 81 MG TABLET, CHEWABLE PO ONE (20:18)
--- NOTE | 2019-06-25 20:19 | ER Document Report ---
ED Medical Screen (RME) - General Chief Complaint: Swelling Stated Complaint: BODY SWELLING Time Seen by Provider: 06/25/19 20:11 Primary Care Provider: SEFERINO BARTLETT PA [Primary Care Provider] - Follow up as needed Mode of Arrival: Ambulatory Information source: Patient Notes: HPI; 39-year-old female past medical history significant for diabetes, hypertension, hyperlipidemia, thalassemia presents to the emergency room complaining of bilateral upper and lower edema for the past 4 days. States she had some chest pressure last night which was relieved after she brought her feet up in the air. Patient states she has had a 14 pound weight gain in the past 4 days. Denies any dietary changes. No recent travel. No history of previous DVTs. PE: Alert and oriented x3. Mild distress noted. Lungs clear to auscultation without rales, rhonchi, or wheezes. Heart: Regular rate and rhythm without murmurs, rubs, or gallops. 1+ pitting edema to bilateral lower extremities and bilateral upper extremities. EKG was not done on arrival as patient did not tell anyone about the chest pressure until she was in the triage room. I have greeted and performed a rapid initial assessment of this patient. A comprehensive ED assessment and evaluation of the patient, analysis of test results and completion of the medical decision making process will be conducted by additional ED providers. I have specifically instructed the patient or family members with the patient to immediately return to any nursing staff should anything change in the patient's condition or with their chief complaint. TRAVEL OUTSIDE OF THE [place] IN LAST 30 DAYS: No - Related Data Allergies/Adverse Reactions: codeine [Codeine] Allergy (Verified 06/25/19 20:10) Anaphylaxis Past Medical History - Past Medical History Cardiac Medical History: Reports: Hx Hypertension Denies: Hx Heart Attack Pulmonary Medical History: Denies: Hx Asthma Neurological Medical History: Denies: Hx Cerebrovascular Accident, Hx Seizures Endocrine Medical History: Reports: Hx Diabetes Mellitus Type 1, Hx Diabetes Mellitus Type 2 Renal/ Medical History: Reports: Hx Ovarian Cysts. Denies: Hx Peritoneal Dialysis GI Medical History: Reports: Hx Endoscopy. Denies: Hx Hepatitis, Hx Hiatal Hernia, Hx Ulcer Infectious Medical History: Denies: Hx Hepatitis Past Surgical History: Reports: Hx Abdominal Surgery - abdominal lap for mass, Hx Section - x2, Hx Gynecologic Surgery - fallopian tube removed left, uterine ablation, Hx Hysterectomy. Denies: Hx Mastectomy, Hx Open Heart Surgery, Hx Pacemaker - Immunizations Immunizations up to date: Yes Hx Diphtheria, Pertussis, Tetanus Vaccination: Yes - unknown Physical Exam - Vital signs Vitals: Temp Pulse Resp BP Pulse Ox 99 F 103 H 18 153/82 H 97 06/25/19 19:04 06/25/19 19:04 06/25/19 19:04 06/25/19 19:04 06/25/19 19:04 Course - Vital Signs Vital signs: Temp Pulse Resp BP Pulse Ox 99 F 103 H 18 153/82 H 97 06/25/19 19:04 06/25/19 19:04 06/25/19 19:04 06/25/19 19:04 06/25/19 19:04 Doctor's Discharge - Discharge Referrals: SEFERINO BARTLETT PA [Primary Care Provider] - Follow up as needed
--- NOTE | 2019-06-25 20:44 | RADIOLOGY REPORT (SQ) ---
EXAM DESCRIPTION: PA and lateral radiographs of the chest. CLINICAL HISTORY: 39 years Female, chest pain COMPARISON: Two views of the chest 03/05/2018 FINDINGS: Lungs: Lungs are clear. No pneumonia or edema. No pneumothorax or pleural effusion. Mediastinum: Cardiac and mediastinal silhouette are normal. Bones: Osseous structures are normal. IMPRESSION: No acute process. No significant interval change.
[2019-06-25 20:50] LABS: ABSOLUTE BASOPHILS # (AUTO) 0.1 10^3/uL (0.0-0.2); ABSOLUTE EOSINOPHILS # (AUTO) 0.3 10^3/uL (0.0-0.6); ABSOLUTE LYMPHOCYTES (AUTO) 2.6 10^3/uL (0.5-4.7); ABSOLUTE MONOCYTES (AUTO) 0.7 10^3/uL (0.1-1.4); ABSOLUTE NEUT (AUTO) 6.2 10^3/uL (1.7-8.2); BASOPHILS % (AUTO) 0.8 % (0-2); EOSINOPHILS % (AUTO) 3.3 % (0-6); HEMATOCRIT 30.3 % (36.0-47.0); HEMOGLOBIN 9.9 g/dL (12.0-15.5); LYMPHOCYTES % (AUTO) 26.3 % (13-45); MEAN CORPUSCULAR HEMOGLOBIN 28.1 pg (27.0-33.4); MEAN CORPUSCULAR HGB CONC 32.8 g/dL (32.0-36.0); MEAN CORPUSCULAR VOLUME 86 fl (80-97); MONOCYTES % (AUTO) 6.9 % (3-13); PLATELET COUNT 316 10^3/uL (150-450); RED BLOOD COUNT 3.53 10^6/uL (3.72-5.28); RED CELL DISTRIBUTION WIDTH 12.9 % (11.5-14.0); SEGMENTED NEUTROPHILS % (AUTO) 62.7 % (42-78); TOTAL CELLS COUNTED % (AUTO) 100 %
[2019-06-25 21:07] LABS: ALKALINE PHOSPHATASE 84 U/L (38-126); ASPARTATE AMINO TRANSFERASE 22 U/L (14-36); BILIRUBIN,TOTAL 0.2 mg/dL (0.2-1.3); BLOOD UREA NITROGEN 39 mg/dL (7-20); CALCIUM 8.9 mg/dL (8.4-10.2); CREATINE KINASE 272 U/L (30-135); GLUCOSE 154 mg/dL (75-110); POTASSIUM 4.3 mmol/L (3.6-5.0); TOTAL PROTEIN 6.3 g/dL (6.3-8.2)
[2019-06-25 21:13] LABS: ANION GAP 5 (5-19); CARBON DIOXIDE 24 mmol/L (22-30); CHLORIDE 106 mmol/L (98-107)
[2019-06-25 21:19] LABS: CREATINE KINASE MB 2.34 ng/mL (<4.55); NT PRO BNP 162 pg/mL (<125)
[2019-06-25 21:20] LABS: TROPONIN I < 0.012 ng/mL
[2019-06-25] MEDS ORDERED: ASPIRIN 81 MG TABLET, CHEWABLE ONE (22:27)
--- NOTE | 2019-06-25 23:14 | ER Document Report ---
ED General - General Chief Complaint: Swelling Stated Complaint: BODY SWELLING Time Seen by Provider: 06/25/19 20:11 Primary Care Provider: SEFERINO BARTLETT PA [Primary Care Provider] - Follow up as needed Mode of Arrival: Ambulatory Notes: 39-year-old female who is an insulin-dependent type 1 diabetic presents the emergency department complaining of swelling to her hands and her feet associate d with an approximately 15 pound weight gain over the past week. Patient first noticed the swelling in her feet last week, states that is been getting progressively worse although it does improve with elevation. Patient denies any change in her diet, denies any significant increase in sodium intake. States that she has seen her primary care physician within the past month and was told that she had a slight increase in her creatinine however they took her off of her hydrochlorothiazide and was switched to amlodipine and losartan and she states her creatinine improved. She is also recently been informed that she is anemic, she saw a secondary set up man and was told that she has thalassemia trait so her hemoglobin is actually good considering she has thalassemia trait. Patient states that her swelling has been progressively worsening over the past week and now causes pain and tingling to her fingers and her toes. States that when the tingling started she thought that her blood sugar might be dropping so she checked it and her blood sugar was 130, her blood pressure was 130/85. Patient states that the swelling is so significant that she feels like she even has pain on an old scar surgical scar on her foot from when she was 6 months old. She has had similar swelling in the past several years ago, that was when her potassium was low, when they replaced her potassium it got better and she has not had any recurrence with this. Denies any recent travel, denies any history of DVT or PE, denies any difficulty breathing except when she lays completely flat. Denies any personal history of CHF. TRAVEL OUTSIDE OF THE [place] IN LAST 30 DAYS: No - Related Data Allergies/Adverse Reactions: codeine [Codeine] Allergy (Verified 06/25/19 20:10) Anaphylaxis Past Medical History - General Information source: Patient - Social History Smoking Status: Never Smoker Frequency of alcohol use: None Drug Abuse: None Family History: Other - Grandmother and mother with cardiac issues at a young age, grandmother with congestive heart failure. Patient has homicidal ideation: No - Past Medical History Cardiac Medical History: Reports: Hx Hypertension Denies: Hx Heart Attack Pulmonary Medical History: Denies: Hx Asthma Neurological Medical History: Denies: Hx Cerebrovascular Accident, Hx Seizures Endocrine Medical History: Reports: Hx Diabetes Mellitus Type 1, Hx Diabetes Mellitus Type 2 Renal/ Medical History: Reports: Hx Ovarian Cysts. Denies: Hx Peritoneal Dialysis GI Medical History: Reports: Hx Endoscopy. Denies: Hx Hepatitis, Hx Hiatal Hernia, Hx Ulcer Infectious Medical History: Denies: Hx Hepatitis Past Surgical History: Reports: Hx Abdominal Surgery - abdominal lap for mass, Hx Section - x2, Hx Gynecologic Surgery - fallopian tube removed left, uterine ablation, Hx Hysterectomy. Denies: Hx Mastectomy, Hx Open Heart Surgery, Hx Pacemaker - Immunizations Immunizations up to date: Yes Hx Diphtheria, Pertussis, Tetanus Vaccination: Yes - unknown Review of Systems - Review of Systems Constitutional: No symptoms reported EENT: No symptoms reported Cardiovascular: See HPI, Orthopnea, Edema. denies: Chest pain, Dyspnea, Syncope, Dizziness Respiratory: See HPI, Other - Orthopnea. Gastrointestinal: No symptoms reported Musculoskeletal: See HPI, Leg swelling, Ankle swelling Neurological/Psychological: See HPI, Tingling -: Yes All other systems reviewed and negative Physical Exam - Vital signs Vitals: Temp Pulse Resp BP Pulse Ox 99 F 103 H 18 153/82 H 97 06/25/19 19:04 06/25/19 19:04 06/25/19 19:04 06/25/19 19:04 06/25/19 19:04 Interpretation: Hypertensive, Tachycardic - Notes Notes: GENERAL: Alert, interacts well. No acute distress. HEAD: Normocephalic, atraumatic EYES: Pupils equal, round and reactive to light, extraocular movements intact. ENT: Oral mucosa moist, tongue midline. NECK: Full range of motion, supple, trachea midline. LUNGS: Clear to auscultation bilaterally, no wheezes, rales or rhonchi, no respiratory distress. HEART: Regular rate and rhythm, no murmurs, gallops, rubs. ABDOMEN: Soft, nontender, nondistended, bowel sounds present in all 4 quadrants. EXTREMITIES: Moves all 4 extremities spontaneously, 2+ pitting edema to the bilateral lower extremities extending to the level of the knees, 1+ nonpitting edema to the hands and mid forearm, radial and dorsalis pedis pulses 2/4 bilaterally. No cyanosis. NEUROLOGICAL: Alert and oriented x3, normal speech, cranial nerves II through XII grossly intact. PSYCH: Normal mood, normal affect. SKIN: Warm, Dry, no rashes or lesions noted. Course - Re-evaluation Re-evalutation: 06/25/19 23:39 CBC shows anemia with a hemoglobin 9.9, this is relatively stable, CMP shows an elevated creatinine at 1.38, this is increased compared to 3 months ago when it was 1.23, BUN is also elevated at 39, no significant change from 3 months ago, proBNP minimally elevated at 162, troponin negative, test negative, chest x-ray does not show any evidence of heart failure. EKG is nonischemic. Discussed with patient that I do not see any life-threatening etiologies to her peripheral edema at this time, discussed that it could be related to pressure changes, to mild anemia combined with mild kidney failure, or to another source that we have yet to find. Suggested that patient engage in exercise 20 to 30 minutes a day while wearing compression hose, wear compression hose for most of the day, aim for as low sodium intake as possible, drink plenty of fluids, track her weight and follow-up with her primary care physician within the next week. Discharged home. - Vital Signs Vital signs: Temp Pulse Resp BP Pulse Ox 98.5 F 103 H 15 157/85 H 98 06/25/19 23:21 06/25/19 19:04 06/25/19 23:19 06/25/19 23:19 06/25/19 23:19 - Laboratory Result Diagrams: 06/25/19 20:35 06/25/19 20:35 Laboratory results interpreted by me: 06/25/19 06/25/19 06/25/19 20:35 20:35 20:35 RBC 3.53 L Hgb 9.9 L Hct 30.3 L Sodium 134.6 L BUN 39 H Creatinine 1.38 H Est GFR ( Amer) 52 L Est GFR (MDRD) Non-Af 43 L Glucose 154 H Creatine Kinase 272 H NT-Pro-B Natriuret Pep 162 H Albumin 3.0 L - EKG Interpretation by Me Additional EKG results interpreted by me: 06/25/19 23:40 EKG shows sinus tachycardia at a rate of 103, normal axis, normal intervals, no ST segment elevations or depressions, there is T wave flattening in lead III, aVL, V3 through V6, per my interpretation. Discharge - Discharge Clinical Impression: Peripheral edema, Type 1 diabetes mellitus with hyperglycemia, with long-term current use of insulin Condition: Stable Disposition: HOME, SELF-CARE Additional Instructions: Today we did not find any signs of congestive heart failure or blood clot in your arms and legs. You do have some signs of kidney damage and you are anemic. These could combine to give you some mild swelling in your hands and your feet however it is not a perfect explanation. We did not find anything life-threatening today. It is very important that you continue to follow-up with your primary care physician and with your secondary set up man. I intentionally did not start you on a diuretic today as you are already on 2 different blood pressure medications. You will want to talk to yo primary care physician about whether or not a third medication that could affect your blood pressure would be appropriate to help treat the swelling. Please drink plenty of water, try to exercise every day, consider wearing compression hose to help decrease the swelling in her legs and try to consume less than thousand milligrams of sodium a day. Return to the emergency department for chest pain, worsening shortness of breath or any new or concerning symptoms including asymmetric swelling in your arms or legs. Referrals: SEFERINO BARTLETT PA [Primary Care Provider] - Follow up as needed
[2019-06-25 23:33] VITALS: BP 157/85
--- NOTE | 2019-06-25 23:43 | EKG REPORT ---
SEVERITY:- BORDERLINE ECG - SINUS TACHYCARDIA BORDERLINE T ABNORMALITIES, ANT-LAT LEADS : Confirmed by: Therese Valera MD 25-Jun-2019 23:42:55
== END 2019-06-25 23:37 | disposition home or self-care (01) ==
LOC: ER 19:01
DX: R60.9 Edema, unspecified (principal); E10.65 Type 1 diabetes mellitus with hyperglycemia; R63.5 Abnormal weight gain; I10 Essential (primary) hypertension; D64.9 Anemia, unspecified; Z88.6 Allergy status to analgesic agent; Z79.4 Long term (current) use of insulin
CPT/HCPCS: 36415; 71046; 80053; 82550; 82553; 83880; 84484; 84703; 85025; 93005; 93010; 99285